=== PATIENT | female | born 1985 | race African-American/Black ===

== ENCOUNTER 2018-12-30 10:04 | Emergency (ER) | payer OTHER ==
[~2018-12-30] VITALS: Ht 149.9 cm; Wt 47.5 kg
[2018-12-30 10:13] VITALS: BP 111/77
[2018-12-30] MEDS ORDERED: diphenhydrAMINE 50 MG/ML VIAL IM ONE (10:45)
[2018-12-30] MEDS ORDERED: HALOPERIDOL LACT 5 MG/ML VIAL. IM ONE (10:45)
[2018-12-30 11:13] LABS: BASO % 0 % (0-3); EOS # 0.1 x10^3/uL (0.0-0.7); EOS % 1 % (0-3); HEMOGLOBIN 12.6 g/dL (12.0-15.5); LYMPH # 2.5 x10^3/uL (1.0-4.8); LYMPH % 27 % (24-48); MEAN CORPUSCULAR HEMOGLOBIN 32 pg (25-35); MEAN CORPUSCULAR HGB CONC 33 g/dL (31-37); MEAN CORPUSCULAR VOLUME 97 fL (79-100); MONO # 0.5 x10^3/uL (0.0-1.1); MONO % 6 % (0-9); NEUT # 6.2 x10^3uL (1.8-7.7); NEUT % 66 % (31-73); PLATELET COUNT 310 x10^3/uL (140-400); RED BLOOD COUNT 3.92 x10^6/uL (3.50-5.40); RED CELL DISTRIBUTION WIDTH 17.4 % (11.5-14.5); WHITE BLOOD COUNT 9.3 x10^3/uL (4.0-11.0)
[2018-12-30 11:19] LABS: PREG TEST PT QUAL NEGATIVE (NEG)
[2018-12-30 11:20] LABS: ETHANOL < 10 mg/dL (0-10); SALIC 5.8 mg/dL (2.8-20.0)
[2018-12-30 11:23] LABS: ALBUMIN 3.4 g/dL (3.4-5.0); ALBUMIN/GLOBULIN RATIO 0.7 (1.0-1.7); CALCIUM 9.2 mg/dL (8.5-10.1); CREATININE 0.6 mg/dL (0.6-1.0); GFR 137.7; TOTAL BILIRUBIN 0.4 mg/dL (0.2-1.0)
[2018-12-30 11:24] LABS: POTASSIUM 2.8 mmol/L (3.5-5.1)
[2018-12-30] MEDS ORDERED: POTASSIUM CHLORIDE 20 MEQ TABLET.ER. PO ONE (11:30)
--- NOTE | 2018-12-30 12:09 | PHYS DOC ---
Past History Past Medical History: Anxiety, Constipation, Depression, Other Past Surgical History: Appendectomy, , Tubal ligation, Other Smoking: Cigarettes Alcohol Use: None Drug Use: Marijuana, Other Social History Narrative: Hx of opiat abuse Adult General Chief Complaint Chief Complaint: HALLUCINATIONS AUDIBLE/VISUAL HPI HPI Patient is a 33-year-old female presents with auditory hallucinations that are arguing with her. She was sent here by her father. Nothing seems to make these better or worse. These have been present for the past 2 weeks. She denies any suicidal or homicidal ideation. Denies any headache.[] Review of Systems Review of Systems Constitutional: Denies fever or chills [] Eyes: Denies change in visual acuity, redness, or eye pain [] HENT: Denies nasal congestion or sore throat [] Respiratory: Denies cough or shortness of breath [] Cardiovascular: No chest pain or palpitations[] GI: Denies abdominal pain, nausea, vomiting, bloody stools or diarrhea [] : Denies dysuria or hematuria [] Musculoskeletal: Denies back pain or joint pain [] Integument: Denies rash or skin lesions [] Neurologic: Denies headache, focal weakness or sensory changes [] Endocrine: Denies polyuria or polydipsia [] All other systems were reviewed and found to be within normal limits, except as documented in this note. Current Medications Current Medications Current Medications Medications (Trade) Dose Ordered Sig/Dmitry Start Time Stop Time Status Last Admin Dose Admin Diphenhydramine HCl (Benadryl) 50 mg 1X ONCE 12/30/18 10:45 12/30/18 10:46 DC Haloperidol Lactate (Haldol) 5 mg 1X ONCE 12/30/18 10:45 12/30/18 10:46 DC 12/30/18 11:01 5 MG Potassium Chloride (Klor-Con) 40 meq 1X ONCE 12/30/18 11:30 12/30/18 11:40 DC 12/30/18 11:43 40 MEQ Allergies Allergies Allergies Coded Allergies Type Severity Reaction Last Updated Verified morphine Allergy Unknown 12/30/18 Yes Physical Exam Physical Exam Constitutional: Well developed, well nourished, no acute distress, non-toxic appearance. [] HENT: Normocephalic, atraumatic, bilateral external ears normal, oropharynx moist, no oral exudates, nose normal. [] Eyes: PERRLA, EOMI, conjunctiva normal, no discharge. [] Neck: Normal range of motion, no tenderness, supple, no stridor. [] Cardiovascular:Heart rate regular rhythm, no murmur [] Lungs & Thorax: Bilateral breath sounds clear to auscultation [] Abdomen: Bowel sounds normal, soft, no tenderness, no masses, no pulsatile masses. [] Skin: Warm, dry, no erythema, no rash. [] Back: No tenderness, no CVA tenderness. [] Extremities: No tenderness, no cyanosis, no clubbing, ROM intact, no edema. [] Neurologic: Alert and oriented X 3, normal motor function, normal sensory function, no focal deficits noted. [] Psychologic: Patient is looking over her right shoulder talking to people that are not present. Arguing with them. [] Current Patient Data Vital Signs Vital Signs Date Time Temp Pulse Resp B/P (MAP) Pulse Ox O2 Delivery O2 Flow Rate FiO2 12/30/18 10:13 98.3 91 22 95 Room Air Lab Results Laboratory Tests Test 12/30/18 10:55 White Blood Count 9.3 x10^3/uL (4.0-11.0) Red Blood Count 3.92 x10^6/uL (3.50-5.40) Hemoglobin 12.6 g/dL (12.0-15.5) Hematocrit 38.0 % (36.0-47.0) Mean Corpuscular Volume 97 fL (79-100) Mean Corpuscular Hemoglobin 32 pg (25-35) Mean Corpuscular Hemoglobin Concent 33 g/dL (31-37) Red Cell Distribution Width 17.4 % (11.5-14.5) H Platelet Count 310 x10^3/uL (140-400) Neutrophils (%) (Auto) 66 % (31-73) Lymphocytes (%) (Auto) 27 % (24-48) Monocytes (%) (Auto) 6 % (0-9) Eosinophils (%) (Auto) 1 % (0-3) Basophils (%) (Auto) 0 % (0-3) Neutrophils # (Auto) 6.2 x10^3uL (1.8-7.7) Lymphocytes # (Auto) 2.5 x10^3/uL (1.0-4.8) Monocytes # (Auto) 0.5 x10^3/uL (0.0-1.1) Eosinophils # (Auto) 0.1 x10^3/uL (0.0-0.7) Basophils # (Auto) 0.0 x10^3/uL (0.0-0.2) Sodium Level 139 mmol/L (136-145) Potassium Level 2.8 mmol/L (3.5-5.1) *L Chloride Level 102 mmol/L (98-107) Carbon Dioxide Level 26 mmol/L (21-32) Anion Gap 11 (6-14) Blood Urea Nitrogen 3 mg/dL (7-20) L Creatinine 0.6 mg/dL (0.6-1.0) Estimated GFR (Cockcroft-Gault) 137.7 BUN/Creatinine Ratio 5 (6-20) L Glucose Level 85 mg/dL (70-99) Calcium Level 9.2 mg/dL (8.5-10.1) Magnesium Level 1.9 mg/dL (1.8-2.4) Total Bilirubin 0.4 mg/dL (0.2-1.0) Aspartate Amino Transferase (AST) 14 U/L (15-37) L Alanine Aminotransferase (ALT) 10 U/L (14-59) L Alkaline Phosphatase 68 U/L (46-116) Total Protein 8.0 g/dL (6.4-8.2) Albumin 3.4 g/dL (3.4-5.0) Albumin/Globulin Ratio 0.7 (1.0-1.7) L Serum Test, Qualitative Negative (NEG) Salicylates Level 5.8 mg/dL (2.8-20.0) Salicylate Last Dose Date Unknown Salicylate Last Dose Time Unknown Acetaminophen Level mcg/mL (10-30) Acetaminophen Last Dose Date Pending Acetaminophen Last Dose Time Pending Ethyl Alcohol Level < 10 mg/dL (0-10) EKG EKG [] Radiology/Procedures Radiology/Procedures [] Course & Med Decision Making Course & Med Decision Making Pertinent Labs and Imaging studies reviewed. (See chart for details) ED course: Patient arrived, was placed in bed, in tolerated exam well. Patient was noted to have a low potassium and attempted to replace this while in the emergency department. While being evaluated by the mental health team she elected to leave the emergency department. She did not sign an AMA form.[] Dragon Disclaimer Dragon Disclaimer This electronic medical record was generated, in whole or in part, using a voice recognition dictation system. Departure Departure: Impression: Primary Impression: Auditory hallucinations Additional Impression: Hypokalemia Referrals: PCP,NO (PCP) Problem Qualifiers LIMA PENN DO Dec 30, 2018 12:09
[2018-12-30 12:50] LABS: ACETAMIN < 10 mcg/mL (10-30)
== END 2018-12-30 11:54 | disposition left against medical advice (07) ==
LOC: ER 10:04
DX: R44.0 Auditory hallucinations (principal); E87.6 Hypokalemia; F41.9 Anxiety disorder, unspecified; F32.9 Major depressive disorder, single episode, unspecified; F17.210 Nicotine dependence, cigarettes, uncomplicated; Z88.5 Allergy status to narcotic agent
CPT/HCPCS: 36415; 80053; 83735; 84443; 84703; 85025; 96372; 99284; G0480; G6039; J1630; 80329; J1200; 82003

== ENCOUNTER 2018-12-30 19:48 | Emergency (ER) | payer OTHER ==
[~2018-12-30] VITALS: Ht 149.9 cm; Wt 47.6 kg
[2018-12-30 20:35] LABS: BASO # 0.1 x10^3/uL (0.0-0.2); BASO % 2 % (0-3); EOS # 0.2 x10^3/uL (0.0-0.7); EOS % 3 % (0-3); HEMATOCRIT 35.2 % (36.0-47.0); HEMOGLOBIN 11.7 g/dL (12.0-15.5); LYMPH # 2.9 x10^3/uL (1.0-4.8); LYMPH % 43 % (24-48); MEAN CORPUSCULAR HEMOGLOBIN 32 pg (25-35); MEAN CORPUSCULAR HGB CONC 33 g/dL (31-37); MEAN CORPUSCULAR VOLUME 96 fL (79-100); MONO # 0.5 x10^3/uL (0.0-1.1); MONO % 7 % (0-9); NEUT % 45 % (31-73); PLATELET COUNT 299 x10^3/uL (140-400); RED BLOOD COUNT 3.66 x10^6/uL (3.50-5.40); RED CELL DISTRIBUTION WIDTH 17.6 % (11.5-14.5); WHITE BLOOD COUNT 6.7 x10^3/uL (4.0-11.0)
[2018-12-30 20:48] LABS: ALBUMIN 2.9 g/dL (3.4-5.0); ALBUMIN/GLOBULIN RATIO 0.8 (1.0-1.7); CALCIUM 8.6 mg/dL (8.5-10.1); CREATININE 0.6 mg/dL (0.6-1.0); GFR 137.7; POTASSIUM 3.4 mmol/L (3.5-5.1); TOTAL BILIRUBIN 0.3 mg/dL (0.2-1.0); TOTAL PROTEIN 6.4 g/dL (6.4-8.2)
[2018-12-30 20:54] LABS: ACETAMIN < 2 mcg/mL (10-30); SALIC 5.4 mg/dL (2.8-20.0)
[2018-12-30] MEDS ORDERED: IV RINGERS SOLUTION,LACTATED 1,000 ML IV ONE (21:00)
[2018-12-30] MEDS ORDERED: POTASSIUM CHLORIDE 20 MEQ TABLET.ER. PO ONE (21:15)
--- NOTE | 2018-12-30 21:19 | PHYS DOC ---
Past History Past Medical History: Anxiety, Constipation, Depression (JENSEN HOWARD DO) Past Surgical History: Appendectomy, , Tubal ligation (JENSEN HOWARD DO) Smoking: Cigarettes Alcohol Use: None Drug Use: Marijuana, Other (JENSEN HOWARD DO) Adult General Chief Complaint Chief Complaint: HYPOKALEMIA HPI HPI 33 y/o female presents with her boyfriend with report of recent evaluation in the Emergency Department earlier today. Patient was seen due to history of auditory and visual hallucinations. Boyfriend reports this has been escalating over the last several weeks. Patient has paranoid delusions that her "neighbors "are out to get her. Reports they are hanging around her house. Patient reports they had to leave a hotel recently due to patient hearing voices and check into another hotel. Patient was evaluated by [facility] earlier today and it was recommended that patient would need inpatient psychiatric services due to risk to herself and to others. Patient was found to have a low potassium and was to be medically admitted. Patient decided she did not want to be admitted to the hospital and was subsequently released AGAINST MEDICAL ADVICE. Patient presents back to department after boyfriend was able to convince patient she would need help. Patient currently denies any suicidal or homicidal ideation. (JENSEN HOWARD DO) Review of Systems Review of Systems Constitutional: Denies fever or chills [] Eyes: Denies change in visual acuity, redness, or eye pain [] HENT: Denies nasal congestion or sore throat [] Respiratory: Denies cough or shortness of breath [] Cardiovascular: Denies chest pain or palpitations GI: Denies abdominal pain, nausea, vomiting, or diarrhea [] : Denies dysuria or hematuria [] Musculoskeletal: Denies back pain or joint pain [] Integument: Denies rash or skin lesions [] Neurologic: Denies headache, focal weakness or sensory changes [] Psychiatric: Reports auditory and visual hallucinations, paranoid delusions; denies homicidal or suicidal ideation[] Complete systems were reviewed and found to be within normal limits, except as documented in this note. (JENSEN HOWARD DO) Current Medications Current Medications Current Medications Medications (Trade) Dose Ordered Sig/Dmitry Start Time Stop Time Status Last Admin Dose Admin Lactated Ringer's 1,000 ml @ 1,000 mls/hr 1X ONCE 12/30/18 21:00 3/7/19 21:59 12/30/18 20:30 1,000 MLS/HR Potassium Chloride (Klor-Con) 40 meq 1X ONCE 12/30/18 21:15 12/30/18 21:16 DC (JENSEN HOWARD DO) Allergies Allergies Allergies Coded Allergies Type Severity Reaction Last Updated Verified morphine Allergy Unknown 12/30/18 Yes (JENSEN HOWARD DO) Physical Exam Physical Exam Constitutional: Well developed, well nourished, no acute distress, non-toxic appearance, sleepy HENT: Normocephalic, atraumatic, oropharynx moist Eyes: PERRL, EOMI, conjunctiva normal, no discharge. [] Neck: Normal range of motion, no tenderness, supple, no meningeal signs Cardiovascular: Heart rate regular rhythm, no murmur [] Lungs & Thorax: Bilateral breath sounds clear to auscultation [] Abdomen: Soft, no tenderness Skin: Warm, dry, no erythema, no rash. [] Extremities: No tenderness, ROM intact, no edema. [] Neurologic: Alert and oriented X 3, normal motor function, normal sensory function, no focal deficits noted. [] Psychologic: Affect flat, denies homicidal or suicidal ideation (JENSEN HOWARD DO) Current Patient Data Vital Signs Vital Signs Date Time Temp Pulse Resp B/P (MAP) Pulse Ox O2 Delivery O2 Flow Rate FiO2 12/30/18 20:54 74 16 92/58 (69) 100 Room Air 12/30/18 19:55 97.8 Lab Results Laboratory Tests Test 12/30/18 20:05 White Blood Count 6.7 x10^3/uL (4.0-11.0) Red Blood Count 3.66 x10^6/uL (3.50-5.40) Hemoglobin 11.7 g/dL (12.0-15.5) L Hematocrit 35.2 % (36.0-47.0) L Mean Corpuscular Volume 96 fL (79-100) Mean Corpuscular Hemoglobin 32 pg (25-35) Mean Corpuscular Hemoglobin Concent 33 g/dL (31-37) Red Cell Distribution Width 17.6 % (11.5-14.5) H Platelet Count 299 x10^3/uL (140-400) Neutrophils (%) (Auto) 45 % (31-73) Lymphocytes (%) (Auto) 43 % (24-48) Monocytes (%) (Auto) 7 % (0-9) Eosinophils (%) (Auto) 3 % (0-3) Basophils (%) (Auto) 2 % (0-3) Neutrophils # (Auto) 3.0 x10^3uL (1.8-7.7) Lymphocytes # (Auto) 2.9 x10^3/uL (1.0-4.8) Monocytes # (Auto) 0.5 x10^3/uL (0.0-1.1) Eosinophils # (Auto) 0.2 x10^3/uL (0.0-0.7) Basophils # (Auto) 0.1 x10^3/uL (0.0-0.2) Sodium Level 142 mmol/L (136-145) Potassium Level 3.4 mmol/L (3.5-5.1) L Chloride Level 106 mmol/L (98-107) Carbon Dioxide Level 25 mmol/L (21-32) Anion Gap 11 (6-14) Blood Urea Nitrogen 5 mg/dL (7-20) #L Creatinine 0.6 mg/dL (0.6-1.0) Estimated GFR (Cockcroft-Gault) 137.7 BUN/Creatinine Ratio 8 (6-20) Glucose Level 131 mg/dL (70-99) H Calcium Level 8.6 mg/dL (8.5-10.1) Magnesium Level 2.0 mg/dL (1.8-2.4) Total Bilirubin 0.3 mg/dL (0.2-1.0) Aspartate Amino Transferase (AST) 14 U/L (15-37) L Alanine Aminotransferase (ALT) 11 U/L (14-59) L Alkaline Phosphatase 61 U/L (46-116) Total Protein 6.4 g/dL (6.4-8.2) Albumin 2.9 g/dL (3.4-5.0) L Albumin/Globulin Ratio 0.8 (1.0-1.7) L Salicylates Level 5.4 mg/dL (2.8-20.0) Salicylate Last Dose Date Unknown Salicylate Last Dose Time Unknown Acetaminophen Level < 2 mcg/mL (10-30) L Acetaminophen Last Dose Date Unknown Acetaminophen Last Dose Time Unknown (HOWARD,JNESEN R DO) EKG EKG [] (JENSEN HOWARD DO) Radiology/Procedures Radiology/Procedures [] (JENSEN HOWARD DO) Course & Med Decision Making Course & Med Decision Making Pertinent Lab studies reviewed. (See chart for details) Patient presents for re-evaluation for auditory and visual hallucinations and paranoid delusions regarding people out to harm her. Patient was previously seen in ED today for same and ended up leaving against medical advise when it was recommended that patient be admitted for hypokalemia. Patient had also been evaluated by [facility] who recommended Involuntary inpatient psychiatric admission. Patient's labs redrawn. Prior serum test negative from earlier today. Patient's potassium improved but still slightly decreased. Patient provided with 40meq KCL and given 1L LR. Contacted [facility]. Pending inpatient bed availability. Patient monitored in ED. Awaiting acceptance for transfer for inpatient psychiatric services. 0600- Sign out given to Dr. Alba for further evaluation and final disposition. Discussed current plan with patient and boyfriend, who acknowledge understanding and agreement. (JENSEN HOWARD DO) Course & Med Decision Making In ER@0940: Patient care transferred to ca by Dr. Howard at 0600. Patient was sleeping for couple of hours. Patient was awake at 8 AM and finished her breakfast. Patient shouldn't is alert and oriented and denies suicidal or homicidal ideation and hallucination. Patient was evaluated by [facility] staff who evaluated the patient yesterday also. Because patient is not hallucinating at this time and is alert and oriented and denies suicidal and homicidal ideation plan to discharge patient home with her boyfriend who was with her at all the time during her ER stay. Patient has appointment with [facility] at 11 AM for medical review. Urine was obtained before discharging patient home and I will follow up with the results of UDS. (SAARY ALBA MD) Dragon Disclaimer Dragon Disclaimer This electronic medical record was generated, in whole or in part, using a voice recognition dictation system. (JENSEN HOWARD DO) Departure Departure: Impression: Primary Impression: Paranoid delusion Additional Impressions: Auditory hallucinations Visual hallucinations Tobacco abuse Tobacco abuse counseling Disposition: HOME, SELF-CARE (at 0943) Condition: IMPROVED Referrals: PCP,NO (PCP) Patient Instructions: Hallucinations and Delusions, Smoking Cessation, Tips For Success, Suicidal Feelings, How to Help Yourself Additional Instructions: Follow-up with [facility] appointment at 11 AM today Follow-up with your primary care physician in 3-5 days Return to ER if not getting better Problem Qualifiers JENSEN HOWARD DO Dec 30, 2018 21:19 SARAY ALBA MD Dec 31, 2018 09:45
[2018-12-31 09:57] LABS: U PREG PATIENT NEGATIVE (NEG)
[2018-12-31 09:59] LABS: AMPHETAMINE/METHAMPHETAMINE NEG (NEG); BARBITURATES NEG (NEG); BENZODIAZEPINES POS (NEG); CANNABINOIDS POS (NEG); COCAINE NEG (NEG); METHADONE NEG (NEG); OPIATES NEG (NEG); PHENCYCLIDINE NEG (NEG)
[2018-12-31 10:00] VITALS: BP 119/82
== END 2018-12-31 09:57 | disposition home or self-care (01) ==
LOC: ER 19:48
DX: F20.0 Paranoid schizophrenia (principal); R44.0 Auditory hallucinations; R44.1 Visual hallucinations; E87.6 Hypokalemia; F41.9 Anxiety disorder, unspecified; F32.9 Major depressive disorder, single episode, unspecified; F17.210 Nicotine dependence, cigarettes, uncomplicated; Z71.6 Tobacco abuse counseling; Z88.5 Allergy status to narcotic agent
CPT/HCPCS: 36415; 80053; 80307; 81025; 83735; 84132; 85025; 86705; 86709; 86803; 87340; 99284; G0480; G6039; J7120; 80329; 99283; 82003

== ENCOUNTER 2019-01-13 21:06 | Emergency (ER) | payer OTHER ==
[~2019-01-13] VITALS: Ht 149.9 cm; Wt 49.9 kg
[2019-01-13 21:44] LABS: HEMATOCRIT 33.5 % (36.0-47.0); HEMOGLOBIN 11.6 g/dL (12.0-15.5); RED BLOOD COUNT 3.53 x10^6/uL (3.50-5.40); RED CELL DISTRIBUTION WIDTH 16.5 % (11.5-14.5); WHITE BLOOD COUNT 8.1 x10^3/uL (4.0-11.0)
[2019-01-13] MEDS ORDERED: diphenhydrAMINE 50 MG/ML VIAL IVP ONE (21:45)
[2019-01-13] MEDS ORDERED: HALOPERIDOL LACT 5 MG/ML VIAL. IVP ONE (21:45)
[2019-01-13] MEDS ORDERED: IV NORMAL SALINE 1,000ML 1,000 ML IV ONE (21:45)
--- NOTE | 2019-01-13 21:46 | ED.ADGEN ---
Past History Past Medical History: Anxiety, Constipation, Depression Past Surgical History: Appendectomy, , Tubal ligation Smoking: Cigarettes Alcohol Use: None Drug Use: Marijuana, Other Adult General Chief Complaint Chief Complaint My potassium is low HPI HPI 33 years old female with the history of schizophrenia presented to the emergency department stating she is here voices also she feels her potassium is low she's talking nonstop and emergency department to an individual in the room with her who does not exist she's also seen people around her no fever no chills no abdominal pain no diarrhea and urgency no frequency no hematuria Review of Systems Review of Systems Constitutional: Denies fever or chills [] Eyes: Denies change in visual acuity, redness, or eye pain [] HENT: Denies nasal congestion or sore throat [] Respiratory: Denies cough or shortness of breath [] Cardiovascular: No additional information not addressed in HPI [] GI: Denies abdominal pain, nausea, vomiting, bloody stools or diarrhea [] : Denies dysuria or hematuria [] Musculoskeletal: Denies back pain or joint pain [] Integument: Denies rash or skin lesions [] Current Medications Current Medications Current Medications Medications (Trade) Dose Ordered Sig/Dmitry Start Time Stop Time Status Last Admin Dose Admin Diphenhydramine HCl (Benadryl) 12.5 mg 1X ONCE 01/13/19 21:45 01/13/19 21:46 DC 01/13/19 21:45 12.5 MG Haloperidol Lactate (Haldol) 2 mg 1X ONCE 01/13/19 21:45 01/13/19 21:46 DC 01/13/19 21:46 2 MG Potassium Chloride/Dextrose/ Sod Cl 1,000 ml @ 150 mls/hr 1X ONCE 01/13/19 23:00 01/14/19 05:39 01/13/19 23:09 150 MLS/HR Potassium Chloride (Klor-Con) 80 meq 1X ONCE 01/13/19 22:30 01/13/19 22:31 DC 01/13/19 22:51 80 MEQ Sodium Chloride 1,000 ml @ 1,000 mls/hr 1X ONCE 01/13/19 21:45 01/13/19 22:44 DC 01/13/19 21:44 1,000 MLS/HR Allergies Allergies Allergies Coded Allergies Type Severity Reaction Last Updated Verified morphine Allergy Unknown 12/30/18 Yes Physical Exam Physical Exam Constitutional: Well developed, well nourished, no acute distress, non-toxic appearance. [] HENT: Normocephalic, atraumatic, bilateral external ears normal, oropharynx moist, no oral exudates, nose normal. [] Eyes: PERRLA, EOMI, conjunctiva normal, no discharge. [] Neck: Normal range of motion, no tenderness, supple, no stridor. [] Cardiovascular:Heart rate regular rhythm, no murmur [] Lungs & Thorax: Bilateral breath sounds clear to auscultation [] Abdomen: Bowel sounds normal, soft, no tenderness, no masses, no pulsatile masses. [] Skin: Warm, dry, no erythema, no rash. [] Back: No tenderness, no CVA tenderness. [] Extremities: No tenderness, no cyanosis, no clubbing, ROM intact, no edema. [] Current Patient Data Lab Results Laboratory Tests Test 01/13/19 21:35 01/13/19 21:55 White Blood Count 8.1 x10^3/uL (4.0-11.0) Red Blood Count 3.53 x10^6/uL (3.50-5.40) Hemoglobin 11.6 g/dL (12.0-15.5) L Hematocrit 33.5 % (36.0-47.0) L Mean Corpuscular Volume 95 fL (79-100) Mean Corpuscular Hemoglobin 33 pg (25-35) Mean Corpuscular Hemoglobin Concent 35 g/dL (31-37) Red Cell Distribution Width 16.5 % (11.5-14.5) H Platelet Count 277 x10^3/uL (140-400) Ethyl Alcohol Level < 10 mg/dL (0-10) Sodium Level 136 mmol/L (136-145) Potassium Level 2.4 mmol/L (3.5-5.1) *L Chloride Level 98 mmol/L (98-107) Carbon Dioxide Level 25 mmol/L (21-32) Anion Gap 13 (6-14) Blood Urea Nitrogen 11 mg/dL (7-20) Creatinine 0.6 mg/dL (0.6-1.0) Estimated GFR (Cockcroft-Gault) 137.7 Glucose Level 84 mg/dL (70-99) Calcium Level 8.7 mg/dL (8.5-10.1) EKG EKG [] Radiology/Procedures Radiology/Procedures [] Course & Med Decision Making Course & Med Decision Making Pertinent Labs and Imaging studies reviewed. (See chart for details) [] Final Impression Final Impression [] Problems: (1) Schizophrenia Qualifiers: Qualified Codes: F20.9 - Schizophrenia, unspecified (2) Hypokalemia Dragon Disclaimer Dragon Disclaimer This electronic medical record was generated, in whole or in part, using a voice recognition dictation system. ARLETH PANG MD Jan 13, 2019 21:46
[2019-01-13 22:18] LABS: CALCIUM 8.7 mg/dL (8.5-10.1); CREATININE 0.6 mg/dL (0.6-1.0); GFR 137.7
[2019-01-13 22:21] LABS: POTASSIUM 2.4 mmol/L (3.5-5.1)
[2019-01-13] MEDS ORDERED: POTASSIUM CHLORIDE 20 MEQ TABLET.ER. PO ONE (22:30)
[2019-01-13] MEDS ORDERED: POTASSIUM CHLORIDE 20MEQ 100 ML IV ONE (22:30)
[2019-01-13] MEDS ORDERED: POTASSIUM CL 40MEQ D5-0.45NACL 1,000 ML IV ONE (23:00)
[2019-01-14 00:46] LABS: CLARITY,URINE CLEAR; COLOR,URINE YELLOW
[2019-01-14 00:47] LABS: BACTERIA,URINE 0 /HPF (0-FEW); BILIRUBIN,URINE NEG (NEG); GLUCOSE,URINE NEG (NEG); NITRITE,URINE NEG (NEG); RBC,URINE OCC /HPF (0-2); SQUAMOUS EPITHELIAL CELL,UR FEW /LPF; UROBILINOGEN,URINE 0.2 mg/dL (0.2 mg/dL)
[2019-01-14 00:52] LABS: BARBITURATES NEG (NEG); BENZODIAZEPINES POS (NEG); CANNABINOIDS POS (NEG); COCAINE NEG (NEG); METHADONE NEG (NEG); OPIATES NEG (NEG); PHENCYCLIDINE NEG (NEG)
[2019-01-14 00:53] LABS: AMPHETAMINE/METHAMPHETAMINE POS (NEG)
[2019-01-14 05:22] LABS: CALCIUM 8.3 mg/dL (8.5-10.1); CREATININE 0.6 mg/dL (0.6-1.0); GFR 137.7; POTASSIUM 4.4 mmol/L (3.5-5.1)
[2019-01-14 08:59] VITALS: BP 110/65
[2019-01-14] MEDS ORDERED: POTA20TA4 PO (09:36)
[2019-01-14] MEDS ORDERED: POLY119P4 PO (20:30)
[2019-01-14] MEDS ORDERED: SULF1TAB24 PO (20:30)
== END 2019-01-14 09:41 | disposition home or self-care (01) ==
LOC: ER 21:06
DX: F20.9 Schizophrenia, unspecified (principal); E87.6 Hypokalemia; F41.9 Anxiety disorder, unspecified; F32.9 Major depressive disorder, single episode, unspecified; F17.210 Nicotine dependence, cigarettes, uncomplicated; Z88.5 Allergy status to narcotic agent
CPT/HCPCS: 36415; 80048; 80307; 81001; 85027; 87086; 96365; 96366; 96375; 99284; G0480; J1200; J1630; J3480; J7042; J7030

== ENCOUNTER 2019-01-14 17:24 | Emergency (ER) | payer OTHER ==
[~2019-01-14] VITALS: Ht 149.9 cm; Wt 47.5 kg
[~2019-01-14 17:24] MED LIST: POTA20TA4 PO
[2019-01-14] MEDS ORDERED: MVI, ADULT NO.4 WITH VIT K 10 ML, FOLIC ACID SYRINGE for ER 1 MG, THIAMINE INJ 100 MG i... IV ONE ×4 (18:00)
--- NOTE | 2019-01-14 18:05 | PHYS DOC ---
Past History Past Medical History: Anxiety, Constipation, Depression, Schizophrenia, Other Additional Past Medical Histor: Drug use (ROSARIO ROTHMAN DO) Past Surgical History: Appendectomy, , Tubal ligation (ROSARIO ROTHMAN DO) Smoking: Cigarettes Alcohol Use: Occasionally Drug Use: Benzodiazepine, Marijuana, Methamphetamine, Opiates (ROSARIO ROTHMAN DO) Adult General Chief Complaint Chief Complaint: WEAKNESS/GENERALIZED HPI HPI 33-year-old female returns to the emergency room with feeling of generalized weakness. The patient was here for 12 hours yesterday and discharge this morning to being treated for hypokalemia. She now states that she was feeling increased weakness and global muscle weakness. She says something about supposed to be getting a full body CAT scan. She denies fever or chills. (ROSARIO ROTHMAN DO) Review of Systems Review of Systems Constitutional: Denies fever or chills. General weakness[] Eyes: Denies change in visual acuity, redness, or eye pain [] HENT: Denies nasal congestion or sore throat [] Respiratory: Denies cough or shortness of breath [] Cardiovascular: No additional information not addressed in HPI [] GI: Denies abdominal pain, nausea, vomiting, bloody stools or diarrhea [] : Denies dysuria or hematuria [] Musculoskeletal: Denies back pain or joint pain [] Integument: Denies rash or skin lesions [] Neurologic: Denies headache, focal weakness or sensory changes [] Endocrine: Denies polyuria or polydipsia [] All other systems were reviewed and found to be within normal limits, except as documented in this note. (ROSARIO ROTHMAN DO) Current Medications Current Medications Current Medications Medications (Trade) Dose Ordered Sig/Dmitry Start Time Stop Time Status Last Admin Dose Admin Multivitamins/ Minerals 10 ml/ Folic Acid 1 mg/ Thiamine HCl 100 mg/Sodium Chloride 1,011.1 ml @ 1,000 mls/ hr 1X ONCE 01/14/19 18:00 01/14/19 19:00 (ROSARIO ROTHMAN DO) Allergies Allergies Allergies Coded Allergies Type Severity Reaction Last Updated Verified morphine Allergy Unknown 12/30/18 Yes (ROSARIO ROTHMAN DO) Physical Exam Physical Exam Constitutional: Well developed, thin, well nourished, no acute distress, non- toxic appearance. [] HENT: Normocephalic, atraumatic, bilateral external ears normal, oropharynx moist, no oral exudates, nose normal. [] Eyes: PERRLA, EOMI, conjunctiva normal, no discharge. [] Neck: Normal range of motion, no tenderness, supple, no stridor. [] Cardiovascular: Heart rate regular rhythm, no murmur [] Lungs & Thorax: Bilateral breath sounds clear to auscultation [] Abdomen: Bowel sounds normal, soft, no tenderness, no masses, no pulsatile masses. [] Skin: Warm, dry, no erythema, no rash. [] Back: No tenderness, no CVA tenderness. [] Extremities: No tenderness, no cyanosis, no clubbing, ROM intact, no edema. [] Neurologic: Alert and oriented X 3, normal motor function, normal sensory function, no focal deficits noted. [] Psychologic: Affect normal, judgement normal, mood normal. [] (ROSARIO ROTHMAN DO) EKG EKG [] (ROSARIO ROTHMAN DO) Radiology/Procedures Radiology/Procedures [] (ROSARIO ROTHMAN DO) Course & Med Decision Making Course & Med Decision Making Pertinent Labs and Imaging studies reviewed. (See chart for details) The patient's labs are pending. I'm signing out the patient to Dr. Cohen at 1800. [] (ROSARIO ROTHMAN DO) Course & Med Decision Making dx ; weakness uti (ARLETH PANG MD) Dragon Disclaimer Dragon Disclaimer This electronic medical record was generated, in whole or in part, using a voice recognition dictation system. (ROSARIO ROTHMAN DO) Departure Departure: Referrals: PCP,NO (PCP) ROSARIO ROTHMAN DO Jan 14, 2019 18:05 ARLETH PANG MD Jan 14, 2019 20:29
[2019-01-14] MEDS ORDERED: THIAMINE IM 200 MG/2 ML VIAL. IM ONE (18:06)
[2019-01-14] MEDS ORDERED: FOLIC ACID 5 MG/ML SYRINGE for ER IV ONE (18:06)
[2019-01-14 18:19] LABS: BASO # 0.1 x10^3/uL (0.0-0.2); BASO % 1 % (0-3); EOS # 0.2 x10^3/uL (0.0-0.7); EOS % 3 % (0-3); HEMATOCRIT 31.1 % (36.0-47.0); HEMOGLOBIN 10.4 g/dL (12.0-15.5); LYMPH # 3.4 x10^3/uL (1.0-4.8); LYMPH % 37 % (24-48); MEAN CORPUSCULAR HEMOGLOBIN 32 pg (25-35); MEAN CORPUSCULAR HGB CONC 33 g/dL (31-37); MEAN CORPUSCULAR VOLUME 96 fL (79-100); MONO # 0.6 x10^3/uL (0.0-1.1); MONO % 7 % (0-9); NEUT # 4.7 x10^3uL (1.8-7.7); NEUT % 53 % (31-73); PLATELET COUNT 248 x10^3/uL (140-400); RED BLOOD COUNT 3.23 x10^6/uL (3.50-5.40); RED CELL DISTRIBUTION WIDTH 16.9 % (11.5-14.5)
[2019-01-14 18:34] LABS: ALBUMIN 2.7 g/dL (3.4-5.0); ALBUMIN/GLOBULIN RATIO 0.8 (1.0-1.7); CALCIUM 8.5 mg/dL (8.5-10.1); CREATININE 0.5 mg/dL (0.6-1.0); GFR 169.9; TOTAL BILIRUBIN 0.3 mg/dL (0.2-1.0); TOTAL PROTEIN 6.2 g/dL (6.4-8.2)
[2019-01-14 19:42] LABS: BACTERIA,URINE FEW /HPF (0-FEW); BILIRUBIN,URINE NEG (NEG); CLARITY,URINE HAZY; COLOR,URINE STRAW; GLUCOSE,URINE NEG (NEG); NITRITE,URINE NEG (NEG); RBC,URINE RARE /HPF (0-2); SQUAMOUS EPITHELIAL CELL,UR OCC /LPF; UROBILINOGEN,URINE 0.2 mg/dL (0.2 mg/dL)
--- NOTE | 2019-01-14 19:49 | RAD ---
KUB History: Abdominal pain x 2 days Comparison: May 09, 2010 Findings: 2 supine AP views of the abdomen are submitted. There is a nonobstructive bowel gas pattern. There is again clip in the pelvis now in the right paracentral region, previously on the left. Exam is insufficient for the evaluation for free air. There is retained stool greater in the right colon Impression: 1. There is a nonobstructive bowel gas pattern. Electronically signed by: Tyrell King MD (01/14/2019 7:46 PM) [facility]
[2019-01-14 20:30] VITALS: BP 137/80
[2019-01-14] MEDS ORDERED: SULF1TAB24 PO (20:30)
[2019-01-14] MEDS ORDERED: POLY119P4 PO (20:30)
== END 2019-01-14 20:41 | disposition home or self-care (01) ==
LOC: ER 17:24
DX: R53.1 Weakness (principal); N39.0 Urinary tract infection, site not specified; F41.9 Anxiety disorder, unspecified; F32.9 Major depressive disorder, single episode, unspecified; F20.9 Schizophrenia, unspecified; F17.210 Nicotine dependence, cigarettes, uncomplicated; Z88.5 Allergy status to narcotic agent
CPT/HCPCS: 36415; 74018; 80053; 81001; 85025; 87086; 96365; 99284-25; J7030

== ENCOUNTER 2019-02-03 11:08 | Emergency (ER) | payer OTHER ==
[~2019-02-03] VITALS: Ht 149.9 cm; Wt 44.5 kg
[~2019-02-03 11:08] MED LIST changes: +POLY119P4 PO; +SULF1TAB24 PO
--- NOTE | 2019-02-03 11:52 | RAD ---
AP view of the abdomen Clinical indications: Sensation of foreign body in rectum. FINDINGS: There is a 16 mm metallic rectangular foreign body within the mid pelvis. This was seen on previous studies dated January 14, 2019 and May 09, 2010. Therefore, this is consistent with a surgical clip. Anastomotic line of the right side of the pelvis is seen. There is mild fecal retention throughout the colon. No obstructive bowel pattern is seen. IMPRESSION: No new radiopaque foreign body is evident. Electronically signed by: Apollo Lucio MD (02/03/2019 11:49 AM) [id number]
--- NOTE | 2019-02-03 11:58 | PHYS DOC ---
Past History Past Medical History: Anxiety, Constipation, Depression, Schizophrenia, Other Additional Past Medical Histor: Drug use Past Surgical History: Appendectomy, , Tubal ligation Smoking: Cigarettes Alcohol Use: Occasionally Drug Use: Benzodiazepine, Marijuana, Methamphetamine, Opiates Adult General Chief Complaint Chief Complaint: RECTAL FOREIGN BODY HPI HPI Patient is a 33-year-old female who presents with feeling like there is a rectal foreign body for the past 2 days. This happened after the patient to been at a democrat and then woke up at her house. She was evaluated at and had an ultrasound performed. She reports that they only did this a vaginally and that no rectal examination had taken place. Patient denies being able to have a bowel movement. Denies any current nausea or vomiting. She did have some nausea yesterday. Nothing seems to make the symptoms better or worse. No home treatment such as enema or manual retrieval has been attempted. There has been no rectal bleeding.[] Review of Systems Review of Systems Constitutional: Denies fever or chills [] Eyes: Denies change in visual acuity, redness, or eye pain [] HENT: Denies nasal congestion or sore throat [] Respiratory: Denies cough or shortness of breath [] Cardiovascular: No chest pain or palpitations[] GI: See history of present illness[] : Denies dysuria or hematuria [] Musculoskeletal: Denies back pain or joint pain [] Integument: Denies rash or skin lesions [] Neurologic: Denies headache, focal weakness or sensory changes [] Endocrine: Denies polyuria or polydipsia [] All other systems were reviewed and found to be within normal limits, except as documented in this note. Allergies Allergies Allergies Coded Allergies Type Severity Reaction Last Updated Verified morphine Allergy Unknown 12/30/18 Yes Physical Exam Physical Exam Constitutional: Well developed, well nourished, no acute distress, non-toxic appearance. [] HENT: Normocephalic, atraumatic, bilateral external ears normal, oropharynx moist, no oral exudates, nose normal. [] Eyes: PERRLA, EOMI, conjunctiva normal, no discharge. [] Neck: Normal range of motion, no tenderness, supple, no stridor. [] Cardiovascular:Heart rate regular rhythm, no murmur [] Lungs & Thorax: Bilateral breath sounds clear to auscultation [] Abdomen: Bowel sounds normal, soft, no tenderness, no masses, no pulsatile masses. Rectal exam performed with auto body builder apprentice: No external hemorrhoids noted. Proctoscoped placed without any complications. No internal hemorrhoids appreciated, no bleeding, no foreign body appreciated to the extent of the proctoscope.[] Skin: Warm, dry, no erythema, no rash. [] Back: No tenderness, no CVA tenderness. [] Extremities: No tenderness, no cyanosis, no clubbing, ROM intact, no edema. [] Neurologic: Alert and oriented X 3, normal motor function, normal sensory function, no focal deficits noted. [] Psychologic: Affect normal, judgement normal, mood normal. [] Current Patient Data Vital Signs Vital Signs Date Time Temp Pulse Resp B/P (MAP) Pulse Ox O2 Delivery O2 Flow Rate FiO2 02/03/19 11:27 98.1 76 18 100 Room Air EKG EKG [] Radiology/Procedures Radiology/Procedures AP view of the abdomen Clinical indications: Sensation of foreign body in rectum. FINDINGS: There is a 16 mm metallic rectangular foreign body within the mid pelvis. This was seen on previous studies dated January 14, 2019 and May 09, 2010. Therefore, this is consistent with a surgical clip. Anastomotic line of the right side of the pelvis is seen. There is mild fecal retention throughout the colon. No obstructive bowel pattern is seen. IMPRESSION: No new radiopaque foreign body is evident.[] Course & Med Decision Making Course & Med Decision Making Pertinent Labs and Imaging studies reviewed. (See chart for details) Medical decision making: Patient denies there being a chance that she was raped. She reports that this is the first day of her menstrual period. There is no evidence of a rectal foreign body. No evidence of any rectal fissures or tears. No gross bleeding. No evidence of patient being .[] Dragon Disclaimer Dragon Disclaimer This electronic medical record was generated, in whole or in part, using a voice recognition dictation system. Departure Departure: Impression: Primary Impression: Sensation of foreign body Disposition: HOME, SELF-CARE Condition: IMPROVED Referrals: PCP,NO (PCP) Patient Instructions: Constipation, Adult Additional Instructions: Plan plenty of fluids. Increase the fiber in your diet. Follow-up with your regular doctor in 2 days. If you do not have regular doctor list of local clinics will be provided. Return to the ER if worsening pain or any other concerns. LIMA PENN DO Feb 03, 2019 11:58
[2019-02-03 12:29] VITALS: BP 124/70
[2019-02-03 12:29] LABS: PREG TEST PT QUAL NEGATIVE (NEG)
== END 2019-02-03 12:30 | disposition home or self-care (01) ==
LOC: ER 11:08
DX: R19.8 Other specified symptoms and signs involving the digestive system and abdomen (principal); F41.9 Anxiety disorder, unspecified; F32.9 Major depressive disorder, single episode, unspecified; F20.9 Schizophrenia, unspecified; F17.210 Nicotine dependence, cigarettes, uncomplicated; Z88.5 Allergy status to narcotic agent
CPT/HCPCS: 36415; 74018; 84703; 99284

== ENCOUNTER 2019-02-06 22:38 | Emergency (ER) | payer OTHER ==
[~2019-02-06] VITALS: Ht 149.9 cm; Wt 44.9 kg
[2019-02-06 22:51] VITALS: BP 99/50
[2019-02-06] MEDS ORDERED: POLY119P4 PO (23:07)
--- NOTE | 2019-02-06 23:07 | PHYS DOC ---
Past History Past Medical History: Anxiety, Constipation, Depression, Schizophrenia, Other Additional Past Medical Histor: Drug use Past Surgical History: Appendectomy, , Tubal ligation Smoking: Cigarettes Alcohol Use: Occasionally Drug Use: Benzodiazepine, Marijuana, Methamphetamine, Opiates Adult General Chief Complaint Chief Complaint: ABDOMINAL PAIN HPI HPI Patient is a 33-year-old female presents with constipation. She reports that her last bowel movement was 5 days ago. No nausea or vomiting. She is passing flatus. Diffuse aching and cramping in the abdomen. No blood from the rectum. Nothing seems to make the symptoms better or worse. Discomfort is moderate.[] Review of Systems Review of Systems Constitutional: Denies fever or chills [] Eyes: Denies change in visual acuity, redness, or eye pain [] HENT: Denies nasal congestion or sore throat [] Respiratory: Denies cough or shortness of breath [] Cardiovascular: No chest pain or palpitations[] GI: See history of present illness[] : Denies dysuria or hematuria [] Musculoskeletal: Denies back pain or joint pain [] Integument: Denies rash or skin lesions [] Neurologic: Denies headache, focal weakness or sensory changes [] Endocrine: Denies polyuria or polydipsia [] All other systems were reviewed and found to be within normal limits, except as documented in this note. Allergies Allergies Allergies Coded Allergies Type Severity Reaction Last Updated Verified morphine Allergy Unknown 12/30/18 Yes Physical Exam Physical Exam Constitutional: Well developed, well nourished, no acute distress, non-toxic appearance. [] HENT: Normocephalic, atraumatic, bilateral external ears normal, oropharynx moist, no oral exudates, nose normal. [] Eyes: PERRLA, EOMI, conjunctiva normal, no discharge. [] Neck: Normal range of motion, no tenderness, supple, no stridor. [] Cardiovascular:Heart rate regular rhythm, no murmur [] Lungs & Thorax: Bilateral breath sounds clear to auscultation [] Abdomen: Bowel sounds normal, soft, no tenderness, no masses, no pulsatile masses. [] Skin: Warm, dry, no erythema, no rash. [] Back: No tenderness, no CVA tenderness. [] Extremities: No tenderness, no cyanosis, no clubbing, ROM intact, no edema. [] Neurologic: Alert and oriented X 3, normal motor function, normal sensory function, no focal deficits noted. [] Psychologic: Affect normal, judgement normal, mood normal. [] EKG EKG [] Radiology/Procedures Radiology/Procedures [] Course & Med Decision Making Course & Med Decision Making Pertinent Labs and Imaging studies reviewed. (See chart for details) ED course and medical decision making: Patient was seen by me in tolerated exam well. She was given a dose of laxative and discharged in improved condition. She was previously seen by me 3 days ago for complaint of rectal foreign body that was not actually present. She was noted to be constipated on imaging at that time. She was instructed to increase the fiber in her diet trying to treat this without medication. There was no stool in the vault when examined with a proctoscope. No significant hemorrhoids were noted on exam of 3 days ago. We will give the magnesium citrate a chance to work as well as prescribed MiraLAX for outpatient use to prevent recurrence of this issue since it appears that MiraLAX had previously been prescribed. There is no evidence of obstruction or perforation given no nausea, and no significant abdominal tenderness nor rigidity.[] Dragon Disclaimer Dragon Disclaimer This electronic medical record was generated, in whole or in part, using a voice recognition dictation system. Departure Departure: Impression: Primary Impression: Constipation Disposition: 01 HOME, SELF-CARE Condition: IMPROVED Referrals: PCPCECILIA (PCP) Patient Instructions: Constipation, Adult Additional Instructions: Drink plenty of fluids. Increase the fiber in your diet. An easy way to do this is to eat cereal with "bran" or "fiber" in the name. Follow-up with your regular doctor in 2 days. If you do not have a regular doctor list of local clinics will be provided for you. Return to the ER if worsening discomfort or any other concerns. Scripts Polyethylene Glycol 3350 (MIRALAX) 119 Gm Powder 17 GM PO DAILY for constipation, #527 GM Prov: LIMA PENN DO 02/06/19 Problem Qualifiers Primary Impression: Constipation Constipation type: unspecified constipation type Qualified Codes: K59.00 - Constipation, unspecified LIMA PENN DO Feb 06, 2019 23:07
[2019-02-06] MEDS ORDERED: MAGNESIUM CITRATE 296 ML SOLUTION. PO ONE (23:30)
== END 2019-02-06 23:12 | disposition home or self-care (01) ==
LOC: ER 22:38
DX: K59.00 Constipation, unspecified (principal); F41.9 Anxiety disorder, unspecified; F32.9 Major depressive disorder, single episode, unspecified; F20.9 Schizophrenia, unspecified; F17.210 Nicotine dependence, cigarettes, uncomplicated; Z90.49 Acquired absence of other specified parts of digestive tract; Z98.890 Other specified postprocedural states; Z98.51 Tubal ligation status; Z88.5 Allergy status to narcotic agent
CPT/HCPCS: 99282

== ENCOUNTER 2019-02-07 19:13 | Emergency (ER) | payer OTHER ==
[~2019-02-07] VITALS: Ht 149.9 cm; Wt 45.8 kg
[2019-02-07 19:13] VITALS: BP 134/76
--- NOTE | 2019-02-07 19:15 | ED.ADGEN ---
Past History Past Medical History: Anxiety, Constipation, Depression, Schizophrenia, Other Additional Past Medical Histor: Drug use Past Surgical History: Appendectomy, , Tubal ligation Smoking: Cigarettes Alcohol Use: Occasionally Drug Use: Benzodiazepine, Marijuana, Methamphetamine, Opiates Adult General Chief Complaint Chief Complaint ( Hx of Constipation and out let rectal bleeding) Did not see physician. Left when sent for urine collection. HPI HPI Patient is a 33 year old female who presents with hx of rectal bleeding. Pt. sent to bathroom for urine. Pt. then left the ED. Seen yesterday for similar complaint. Pt. returned to ED after leaving and smoking in parking lot. Pt. left and return to the ED 3 x before I was able to obtain Hx. and exam. Pt. hx. of constipation, schizophrenia, polysubstance abuse and anxiety . Pt. denies history of rectal instrumentation or sex. Patient denies history of inflammatory bowel disorder before or family members. Patient denies history coagulopathy. Review of Systems Review of Systems ROS- neg. except blood noted on toilet paper after wiping and hard stool. GI:Hx. out let rectal bleeding and constipation Family History Family History No hx of colitis or inflammatory bowel dz. No hx of coagulopathy Current Medications Current Medications See nursing for home meds Allergies Allergies Allergies Coded Allergies Type Severity Reaction Last Updated Verified morphine Allergy Unknown 12/30/18 Yes Physical Exam Physical Exam Left before exam. GEN. Anxious -HEENT- No acute. Poor dentition CV- RRR No murmur Chest- BS equal, scattered wheezes Abd. NT, BS +, No re bound, Rectal no gross blood Ex.t ROM, DT R+ 2 Skin:- No petechia or significant bruising Current Patient Data Vital Signs Vital Signs Date Time Temp Pulse Resp B/P (MAP) Pulse Ox O2 Delivery O2 Flow Rate FiO2 02/07/19 19:13 97.6 73 16 100 Room Air Lab Results Laboratory Tests Test 02/07/19 19:30 Urine Collection Type Unknown Urine Color Straw Urine Clarity Clear Urine pH 6.5 Urine Specific [place] <=1.005 Urine Protein Neg (NEG-TRACE) Urine Glucose (UA) Neg mg/dL (NEG) Urine Ketones (Stick) Neg mg/dL (NEG) Urine Blood Mod (NEG) Urine Nitrite Neg (NEG) Urine Bilirubin Neg (NEG) Urine Urobilinogen Dipstick 0.2 mg/dL (0.2 mg/dL) Urine Leukocyte Esterase Neg (NEG) Urine RBC 1-2 /HPF (0-2) Urine WBC 0 /HPF (0-4) Urine Squamous Epithelial Cells Occ /LPF Urine Bacteria 0 /HPF (0-FEW) Urine Opiates Screen Neg (NEG) Urine Methadone Screen Neg (NEG) Urine Barbiturates Neg (NEG) Urine Phencyclidine Screen Neg (NEG) Urine Amphetamine/Methamphetamine Neg (NEG) Urine Benzodiazepines Screen Neg (NEG) Urine Cocaine Screen Neg (NEG) Urine Cannabinoids Screen Pos (NEG) Urine Ethyl Alcohol Neg (NEG) EKG EKG [] Radiology/Procedures Radiology/Procedures Pt. refuses X- rays.[] Course & Med Decision Making Course & Med Decision Making Pertinent Labs and Imaging studies reviewed. (See chart for details) Left before exam.- x3, Exam finally completed with Nursing staff present. Pt. to keep soft stools. Follow up with primary and GI. Need out pt. colon exam. Encourage pt to stop smoking. [facility]. See Down time charting for details. Pt. refuses Labs. [] Final Impression Final Impression 1. Hx Out Let Bleeding[] 2. Schizophrenia Hx. 3. Hx. Polysubstance Abuse 4. Tobacco and Marijuana Use 5. Hx. Anxiety Disorder Dragon Disclaimer Dragon Disclaimer This electronic medical record was generated, in whole or in part, using a voice recognition dictation system. Discharge Summary Visit Information Final Diagnosis Problems Medical Problems: (1) History of rectal bleeding Status: Acute Brief Hospital Course Allergies Allergies Coded Allergies Type Severity Reaction Last Updated Verified morphine Allergy Unknown 12/30/18 Yes Vital Signs Vital Signs Date Time Temp Pulse Resp B/P (MAP) Pulse Ox O2 Delivery O2 Flow Rate FiO2 02/07/19 19:13 97.6 73 16 100 Room Air Lab Results Laboratory Tests Test 02/07/19 19:30 Urine Collection Type Unknown Urine Color Straw Urine Clarity Clear Urine pH 6.5 Urine Specific [place] <=1.005 Urine Protein Neg (NEG-TRACE) Urine Glucose (UA) Neg mg/dL (NEG) Urine Ketones (Stick) Neg mg/dL (NEG) Urine Blood Mod (NEG) Urine Nitrite Neg (NEG) Urine Bilirubin Neg (NEG) Urine Urobilinogen Dipstick 0.2 mg/dL (0.2 mg/dL) Urine Leukocyte Esterase Neg (NEG) Urine RBC 1-2 /HPF (0-2) Urine WBC 0 /HPF (0-4) Urine Squamous Epithelial Cells Occ /LPF Urine Bacteria 0 /HPF (0-FEW) Urine Opiates Screen Neg (NEG) Urine Methadone Screen Neg (NEG) Urine Barbiturates Neg (NEG) Urine Phencyclidine Screen Neg (NEG) Urine Amphetamine/Methamphetamine Neg (NEG) Urine Benzodiazepines Screen Neg (NEG) Urine Cocaine Screen Neg (NEG) Urine Cannabinoids Screen Pos (NEG) Urine Ethyl Alcohol Neg (NEG) Brief Hospital Course Ms. Wilhelm is a 33 old female who presented with hx blood on toilet paper after hard stool. Hx. Anxiety, Schizophrenia. Discharge Information Condition at Discharge: Improved, Stable Disposition/Orders: D/C to Home Dischare Medications Active Scripts Active Miralax (Polyethylene Glycol 3350) 119 Gm Powder 17 Gm PO DAILY Miralax (Polyethylene Glycol 3350) 119 Gm Powder 17 Gm PO DAILY Bactrim Ds Tablet (Sulfamethoxazole/Trimethoprim) 1 Each Tablet 1 Tab PO BID Klor-Con M20 (Potassium Chloride) 20 Meq Tab.er.prt 1 Tab PO DAILY Dragon Disclaimer This chart was dictated in whole or in part using Voice Recognition software in a busy, high-work load, and often noisy Emergency Department environment. It may contain unintended and wholly unrecognized errors or omissions. RAÚL MIGUEL MD Feb 07, 2019 19:15
[2019-02-07 19:53] LABS: BARBITURATES NEG (NEG); BENZODIAZEPINES NEG (NEG); CANNABINOIDS POS (NEG); COCAINE NEG (NEG); METHADONE NEG (NEG); OPIATES NEG (NEG); PHENCYCLIDINE NEG (NEG)
[2019-02-07 19:54] LABS: BILIRUBIN,URINE NEG (NEG); CLARITY,URINE CLEAR; COLOR,URINE STRAW; GLUCOSE,URINE NEG (NEG)
[2019-02-07 19:55] LABS: AMPHETAMINE/METHAMPHETAMINE NEG (NEG); BACTERIA,URINE 0 /HPF (0-FEW); NITRITE,URINE NEG (NEG); SQUAMOUS EPITHELIAL CELL,UR OCC /LPF; UROBILINOGEN,URINE 0.2 mg/dL (0.2 mg/dL); WBC,URINE 0 /HPF (0-4)
== END 2019-02-07 20:50 | disposition home or self-care (01) ==
LOC: ER 19:13
DX: K62.5 Hemorrhage of anus and rectum (principal); F20.9 Schizophrenia, unspecified; F41.9 Anxiety disorder, unspecified; F32.9 Major depressive disorder, single episode, unspecified; F17.210 Nicotine dependence, cigarettes, uncomplicated; F12.10 Cannabis abuse, uncomplicated; F15.10 Other stimulant abuse, uncomplicated; F11.10 Opioid abuse, uncomplicated; Z88.5 Allergy status to narcotic agent
CPT/HCPCS: 36415; 80307; 81001; 99284

== ENCOUNTER 2019-02-08 15:25 | Emergency (ER) | payer OTHER ==
[2019-02-07 19:13] VITALS: BP 134/76
== END 2019-02-08 15:41 | disposition left against medical advice (07) ==
LOC: ER 15:25
DX: R44.3 Hallucinations, unspecified (principal); Z53.21 Procedure and treatment not carried out due to patient leaving prior to being seen by health care provider

== ENCOUNTER 2019-03-03 23:16 | Emergency (ER) | payer OTHER ==
[~2019-03-03] VITALS: Ht 149.9 cm; Wt 49.9 kg
[2019-03-03 23:30] VITALS: BP 137/96
--- NOTE | 2019-03-03 23:53 | PHYS DOC ---
Past History Past Medical History: Anxiety, Constipation, Depression, Schizophrenia, Other Additional Past Medical Histor: Drug use Past Surgical History: Appendectomy, , Tubal ligation Smoking: Cigarettes Alcohol Use: Occasionally Drug Use: Benzodiazepine, Marijuana, Methamphetamine, Opiates Adult General Chief Complaint Chief Complaint: CHEST PAIN [facility] HPI Patient is a 33-year-old female presents with intermittent chest pain for the past week. She reports that people put a device in her rectum that went to her heart that controls her chest pain. Nothing seems to make the discomfort worse. No worse with exertion. No nausea or vomiting. No diaphoresis. No radiation of the discomfort. No diarrhea. Patient denies any recent trauma, no prolonged trips or stasis, and no known hypercoagulable state.[] Review of Systems Review of Systems Constitutional: Denies fever or chills [] Eyes: Denies change in visual acuity, redness, or eye pain [] HENT: Denies nasal congestion or sore throat [] Respiratory: Denies cough or shortness of breath [] Cardiovascular: No additional information not addressed in HPI [] GI: Denies abdominal pain, nausea, vomiting, bloody stools or diarrhea [] : Denies dysuria or hematuria [] Musculoskeletal: Denies back pain or joint pain [] Integument: Denies rash or skin lesions [] Neurologic: Denies headache, focal weakness or sensory changes [] Endocrine: Denies polyuria or polydipsia [] All other systems were reviewed and found to be within normal limits, except as documented in this note. Allergies Allergies Allergies Coded Allergies Type Severity Reaction Last Updated Verified morphine Allergy Unknown 12/30/18 Yes Physical Exam Physical Exam Constitutional: Well developed, well nourished, no acute distress, non-toxic appearance. [] HENT: Normocephalic, atraumatic, bilateral external ears normal, oropharynx moist, no oral exudates, nose normal. [] Eyes: PERRLA, EOMI, conjunctiva normal, no discharge. [] Neck: Normal range of motion, no tenderness, supple, no stridor. [] Cardiovascular:Heart rate regular rhythm, no murmur [] Lungs & Thorax: Bilateral breath sounds clear to auscultation [] Abdomen: Bowel sounds normal, soft, no tenderness, no masses, no pulsatile masses. [] Skin: Warm, dry, no erythema, no rash. [] Back: No tenderness, no CVA tenderness. [] Extremities: No tenderness, no cyanosis, no clubbing, ROM intact, no edema. [] Neurologic: Alert and oriented X 3, normal motor function, normal sensory function, no focal deficits noted. [] Psychologic: Affect suspicious, mood normal. [] EKG EKG EKG shows a sinus rhythm at 75 bpm, right axis at 113, QTC 456 ms, no ST elevations. Interpreted by me at 2328[] Radiology/Procedures Radiology/Procedures Chest x-ray shows no infiltrate, no effusion, no pneumothorax Pelvis x-ray showed no fracture or dislocation, no radio opaque foreign body that was not present when compared with imaging of 02/03/19, 01/14/19 and 05/09/2010[] Course & Med Decision Making Course & Med Decision Making Pertinent Labs and Imaging studies reviewed. (See chart for details) ED course: Patient arrived, was placed in bed, and tolerated exam well. After the return of laboratory and imaging findings, these were discussed with the patient who voiced understanding. She was discharged in improved condition. Medical decision making: There is no evidence of a rectal foreign body. No evidence of an acute coronary syndrome. Negative PERC. No evidence of pneumonia, pneumothorax, esophageal rupture, nor thoracic aortic aneurysm dissection[] Dragon Disclaimer Dragon Disclaimer This electronic medical record was generated, in whole or in part, using a voice recognition dictation system. Departure Departure: Impression: Primary Impression: Chest pain Disposition: HOME, SELF-CARE Condition: IMPROVED Referrals: PCP,NO (PCP) Patient Instructions: Chest Pain (Nonspecific) Additional Instructions: Follow-up with your regular doctor in 2 days. If you do not have a regular doctor a list of local clinics will be provided for you. Follow-up with one of them in 2 days. Return to the ER if worsening chest discomfort or any other concerns. Scripts Meloxicam (MELOXICAM) 7.5 Mg Tablet 7.5 MG PO DAILY for PAIN, #20 TAB Prov: LIMA PENN DO 03/04/19 Problem Qualifiers Primary Impression: Chest pain Chest pain type: unspecified Qualified Codes: R07.9 - Chest pain, unspecified LIMA PENN DO March 03, 2019 23:53
--- NOTE | 2019-03-04 00:11 | RAD ---
Examination: Single frontal view the pelvis History history of rectal foreign body COMPARISON: 02/03/2019. Findings/ impression: 16mm metallic rectangular metallic density/or metallic clip projects in the pelvis similar to prior exam and is unchanged. The bowel gas pattern appears unremarkable. The bilateral femoral heads of the scapula. Electronically signed by: Abner Isidro MD (03/04/2019 12:08 AM) [id number]
--- NOTE | 2019-03-04 00:12 | RAD ---
EXAM: CHEST 1 VIEW History: Chest pain COMPARISON: 07/27/2010 TECHNIQUE: Single portable radiograph of the chest FINDINGS: The cardiac silhouette is unremarkable. The lungs are clear bilaterally. The costophrenic sulci are clear and well demarcated. IMPRESSION: No radiographic evidence of an acute cardiopulmonary process. Electronically signed by: Abner Isidro MD (03/04/2019 12:09 AM) [facility]
[2019-03-04 00:20] LABS: BASO % 0 % (0-3); EOS # 0.2 x10^3/uL (0.0-0.7); EOS % 3 % (0-3); HEMATOCRIT 38.4 % (36.0-47.0); HEMOGLOBIN 12.7 g/dL (12.0-15.5); LYMPH # 3.4 x10^3/uL (1.0-4.8); LYMPH % 47 % (24-48); MEAN CORPUSCULAR HEMOGLOBIN 31 pg (25-35); MEAN CORPUSCULAR HGB CONC 33 g/dL (31-37); MEAN CORPUSCULAR VOLUME 94 fL (79-100); MONO # 0.4 x10^3/uL (0.0-1.1); MONO % 6 % (0-9); NEUT # 3.2 x10^3uL (1.8-7.7); NEUT % 44 % (31-73); PLATELET COUNT 369 x10^3/uL (140-400); RED BLOOD COUNT 4.11 x10^6/uL (3.50-5.40); RED CELL DISTRIBUTION WIDTH 17.9 % (11.5-14.5); WHITE BLOOD COUNT 7.3 x10^3/uL (4.0-11.0)
[2019-03-04 00:28] LABS: BACTERIA,URINE 0 /HPF (0-FEW); BILIRUBIN,URINE NEG (NEG); CLARITY,URINE CLEAR; COLOR,URINE YELLOW; GLUCOSE,URINE NEG (NEG); NITRITE,URINE NEG (NEG); RBC,URINE OCC /HPF (0-2); SQUAMOUS EPITHELIAL CELL,UR FEW /LPF; UROBILINOGEN,URINE 0.2 mg/dL (0.2 mg/dL); WBC,URINE OCC /HPF (0-4)
[2019-03-04 00:31] LABS: PREG TEST PT QUAL NEGATIVE (NEG)
[2019-03-04 00:32] LABS: BARBITURATES NEG (NEG); BENZODIAZEPINES NEG (NEG); CANNABINOIDS NEG (NEG); COCAINE NEG (NEG); METHADONE NEG (NEG); OPIATES NEG (NEG); PHENCYCLIDINE NEG (NEG)
[2019-03-04 00:33] LABS: AMPHETAMINE/METHAMPHETAMINE NEG (NEG)
[2019-03-04 00:38] LABS: ALBUMIN 3.3 g/dL (3.4-5.0); ALBUMIN/GLOBULIN RATIO 0.8 (1.0-1.7); CALCIUM 8.7 mg/dL (8.5-10.1); CREATININE 0.7 mg/dL (0.6-1.0); GFR 115.2; POTASSIUM 3.4 mmol/L (3.5-5.1); TOTAL BILIRUBIN 0.1 mg/dL (0.2-1.0); TOTAL PROTEIN 7.4 g/dL (6.4-8.2)
[2019-03-04] MEDS ORDERED: MELO7.5T29 PO (00:48)
--- NOTE | 2019-03-04 17:40 | EKG ---
[address] [address] Test Date: 2019-03-03 Test Time: 23:26:45 Pat Name: KIRSTIN OHARA Department: Room: Gender: F Testing And Regulating Chief: : 1985 Requested By: LIMA PENN Order Number: [id number] Reading MD: Maxwell Cannon Measurements Intervals [place] Rate: 75 P: 0 WA: 116 QRS: 113 QRSD: 80 T: 70 QT: 406 QTc: 456 Interpretive Statements SINUS RHYTHM ABNORMAL RIGHT AXIS DEVIATION LOW LIMB LEAD VOLTAGE Electronically Signed On 03-31-2019 13:16:42 CDT by Maxwell Cannon
== END 2019-03-04 01:05 | disposition home or self-care (01) ==
LOC: ER 23:16
DX: R07.89 Other chest pain (principal); F41.9 Anxiety disorder, unspecified; F20.9 Schizophrenia, unspecified; F32.9 Major depressive disorder, single episode, unspecified; F17.210 Nicotine dependence, cigarettes, uncomplicated; Z88.5 Allergy status to narcotic agent
CPT/HCPCS: 36415; 71045; 72170; 80053; 80307; 81001; 81025; 83690; 83880; 84484; 84703; 85025; 85610; 93005; 99285-25

== ENCOUNTER 2020-07-20 13:27 | Emergency (ER) | payer MEDICAID, OTHER ==
[~2020-07-20] VITALS: Ht 149.9 cm; Wt 45.8 kg
[~2020-07-20 13:27] MED LIST changes: +MELO7.5T29 PO
[2020-07-20] MEDS ORDERED: ZIPRASIDONE IM 20 MG VIAL. IM ONE (14:00)
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
[2020-07-20 14:24] LABS: BASO % 0 % (0-3); EOS # 0.2 x10^3/uL (0.0-0.7); EOS % 3 % (0-3); HEMATOCRIT 42.4 % (36.0-47.0); HEMOGLOBIN 14.2 g/dL (12.0-15.5); LYMPH # 3.4 x10^3/uL (1.0-4.8); LYMPH % 53 % (24-48); MEAN CORPUSCULAR HEMOGLOBIN 32 pg (25-35); MEAN CORPUSCULAR HGB CONC 34 g/dL (31-37); MEAN CORPUSCULAR VOLUME 95 fL (79-100); MONO # 0.5 x10^3/uL (0.0-1.1); MONO % 8 % (0-9); NEUT # 2.3 x10^3uL (1.8-7.7); NEUT % 36 % (31-73); PLATELET COUNT 235 x10^3/uL (140-400); RED BLOOD COUNT 4.47 x10^6/uL (3.50-5.40); RED CELL DISTRIBUTION WIDTH 16.4 % (11.5-14.5); WHITE BLOOD COUNT 6.5 x10^3/uL (4.0-11.0)
[2020-07-20 14:31] LABS: CALCIUM 9.2 mg/dL (8.5-10.1); CREATININE 0.7 mg/dL (0.6-1.0); GFR 113.9; POTASSIUM 3.2 mmol/L (3.5-5.1)
[2020-07-20 14:36] LABS: ETHANOL < 10 mg/dL (0-10)
[2020-07-20 14:37] LABS: ALBUMIN 3.6 g/dL (3.4-5.0); ALBUMIN/GLOBULIN RATIO 0.8 (1.0-1.7); TOTAL BILIRUBIN 0.3 mg/dL (0.2-1.0); TOTAL PROTEIN 8.4 g/dL (6.4-8.2)
[2020-07-20 14:38] LABS: ACETAMIN < 2 mcg/mL (10-30)
[2020-07-20] MEDS ORDERED: ZIPRASIDONE 20 MG CAPSULE. PO ONE (14:45)
--- NOTE | 2020-07-20 14:56 | EKG ---
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
[2020-07-20] MEDS: POTASSIUM CHLORIDE 20 MEQ TABLET.ER. PO ONE (15:00)
[2020-07-20 15:10] LABS: BARBITURATES NEG (NEG); BENZODIAZEPINES POS (NEG); CANNABINOIDS POS (NEG); COCAINE NEG (NEG); METHADONE NEG (NEG); OPIATES NEG (NEG); PHENCYCLIDINE NEG (NEG)
[2020-07-20 15:11] LABS: AMPHETAMINE/METHAMPHETAMINE NEG (NEG)
[2020-07-20 15:30] LABS: BILIRUBIN,URINE NEG (NEG); CLARITY,URINE CLEAR; COLOR,URINE YELLOW; GLUCOSE,URINE NEG (NEG)
[2020-07-20 15:31] LABS: BACTERIA,URINE 0 /HPF (0-FEW); NITRITE,URINE NEG (NEG); SQUAMOUS EPITHELIAL CELL,UR FEW /LPF; UROBILINOGEN,URINE 0.2 mg/dL (0.2 mg/dL); WBC,URINE 0 /HPF (0-4)
[2020-07-21] MEDS ORDERED: ZIPRASIDONE IM 20 MG VIAL. IM ONE ×2 (02:00→06:30)
[2020-07-21] MEDS ORDERED: diphenhydrAMINE 50 MG/ML VIAL IM ONE (02:00)
[2020-07-21] MEDS ORDERED: LORazepam 1 MG TABLET PO ONE ×2 (06:00→17:45)
[2020-07-21] MEDS ORDERED: POTASSIUM CHLORIDE 20 MEQ TABLET.ER. PO ONE (06:03)
[2020-07-21] MEDS: POTASSIUM CHLORIDE 20 MEQ TABLET.ER. PO ONE (06:06)
[2020-07-21] MEDS ORDERED: NICOTINE 21MG PATCH. TD ONE ×2 (06:30→20:00)
[2020-07-21] MEDS: ZIPRASIDONE 20 MG CAPSULE. PO SCH ×2 (17:58→20:50)
[2020-07-21] MEDS ORDERED: clonazePAM 1 MG TABLET PO STA (18:23)
[2020-07-21] MEDS ORDERED: OLANZapine 2.5 MG TABLET PO ONE (19:00)
[2020-07-22] MEDS ORDERED: LORazepam 1 MG TABLET ONE (00:03)
[2020-07-22] MEDS ORDERED: LORazepam 1 MG TABLET PO ONE ×2 (00:30→13:00)
[2020-07-22] MEDS: ZIPRASIDONE 20 MG CAPSULE. PO SCH ×2 (06:17→21:00)
[2020-07-22] MEDS ORDERED: clonazePAM 1 MG TABLET PO STA (08:08)
[2020-07-22] MEDS ORDERED: ZIPRASIDONE IM 20 MG VIAL. IM ONE ×2 (17:14→17:30)
[2020-07-22] MEDS ORDERED: NICOTINE 21MG PATCH. TD ONE (23:45)
[2020-07-22] MEDS ORDERED: OLANZapine 2.5 MG TABLET PO ONE (23:45)
[2020-07-22] MEDS ORDERED: clonazePAM 1 MG TABLET PO ONE (23:45)
[2020-07-23] MEDS ORDERED: traZODone 50 MG TABLET. PO ONE (01:00)
[2020-07-23] MEDS: ZIPRASIDONE 20 MG CAPSULE. PO SCH (08:51)
[2020-07-23] MEDS ORDERED: ZIPRASIDONE 20 MG CAPSULE. PO SCH (09:00)
[2020-07-23] MEDS ORDERED: clonazePAM 1 MG TABLET PO PRN (09:00)
[2020-07-23] MEDS ORDERED: LORazepam 1 MG TABLET PO ONE (10:00)
[2020-07-23 10:30] VITALS: BP 114/76
== END 2020-07-23 11:04 | disposition short-term general hospital (02) ==
LOC: ER 13:27
DX: F22 Delusional disorders (principal); F13.20 Sedative, hypnotic or anxiolytic dependence, uncomplicated; F12.10 Cannabis abuse, uncomplicated; F41.9 Anxiety disorder, unspecified; F32.9 Major depressive disorder, single episode, unspecified; F20.9 Schizophrenia, unspecified; F17.210 Nicotine dependence, cigarettes, uncomplicated; F15.10 Other stimulant abuse, uncomplicated; F11.10 Opioid abuse, uncomplicated; Z03.818 Encounter for observation for suspected exposure to other biological agents ruled out; Z88.5 Allergy status to narcotic agent
CPT/HCPCS: 36415; 80053; 80307; 80329; 81001; 84443; 84702; 85025; 87426; 87491; 87591; 93005; 96372; 99285; G0480; J2060; U0003; J1200; J3486

== ENCOUNTER 2020-10-29 09:28 | Emergency (ER) | payer MEDICAID ==
[~2020-10-29] VITALS: Ht 149.9 cm; Wt 46.0 kg
--- NOTE | 2020-10-29 09:32 | PHYS DOC ---
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 States her bf, Jared, witnessed it. Reports she was conscious during her seizure and described as uncontrollable movements, her arms twisted behind her back. Denies any associated tongue laceration or oral bleeding, urinary or bowel incontinence. No prior history of seizures. States she is diagnosed with schizophrenia but does not believe she has it. Is a very poor historian and cannot recall her home medication. Denies any recent head or neck trauma or assault. Denies any suicidal ideations, homicidal ideations, no visual or auditory hallucinations. States she stopped marijuana a long time ago. Is not a daily drinker. Denies any IV drug use. Currently in ED complains of headache and points to the top of her head as a location of pain. Cannot recall her last menstrual period. Review of Systems: Review of Systems: Constitutional: Denies fever or chills Eyes: Denies change in visual acuity or eye discharge HENT: Denies nasal congestion or sore throat Respiratory: Denies cough or shortness of breath Cardiovascular: Denies chest pain or edema GI: Denies abdominal pain, nausea, vomiting, bloody stools or diarrhea : Denies dysuria or hematuria Musculoskeletal: Denies back pain or joint pain Integument: Denies rash or diaphoresis Neurologic: Denies neck stiffness, focal weakness or sensory changes Endocrine: Denies polyuria or polydipsia Lymphatic: Denies swollen glands Psychiatric: Denies depression or anxiety Allergies: Allergies: Allergies Coded Allergies Type Severity Reaction Last Updated Verified morphine Allergy Unknown 12/30/18 Yes Physical Exam: PE: Constitutional: Well developed, well nourished, no acute distress, non-toxic appearance, thin HENT: Normocephalic, atraumatic, no signs of trauma, no tongue lacerations or oral bleeding, mucous membranes dry Eyes: PERRLA, EOMI, conjunctiva normal, no discharge. Neck: Normal range of motion, supple, Cardiovascular: S1/2 present, regular rhythm Lungs & Thorax: Speaking in full sentences, bilateral equal chest rise, no tachypnea or increased work of breathing Abdomen: soft, no tenderness, Skin: Warm, dry, no erythema, no rash. [] Back: No midline spinal tenderness, no CVA tenderness. [] Extremities: No tenderness, no cyanosis, no edema Neurologic: Alert and oriented X 3, normal motor function, normal sensory function, no focal deficits noted. [] Psychologic: Affect normal, judgement normal/reasonable, mood normal-no psychosis, no paranoia, no disorganized thought processing Nexus C-spine criteria are negative: There is no post midline tenderness, the patient is not intoxicated, there is a normal level of alertness, there are no focal neurologic deficits and there are no distracting injuries. EKG: EKG: [] Radiology/Procedures: Radiology/Procedures: [] Heart Score: Risk Factors: Risk Factors: DM, Current or recent (<one month) smoker, HTN, HLP, family history of CAD, obesity. Risk Scores: Score 0 - 3: 2.5% MACE over next 6 weeks - Discharge Home Score 4 - 6: 20.3% MACE over next 6 weeks - Admit for Clinical Observation Score 7 - 10: 72.7% MACE over next 6 weeks - Early Invasive Strategies Course & Med Decision Making: Course & Med Decision Making Pertinent Labs and Imaging studies reviewed. (See chart for details) No witnessed seizure activity in ed. Pt with [facility], not a danger to herself/others. Urinalysis with no infection. Drug screen negative. Basic labs unremarkable. Will discharge home with strict ED return precautions were given for recurrent seizures/inability to return to her baseline mental status, repeat head injury, neck stiffness, headache with fever or any neurologic deficits. Encouraged urgent outpatient follow-up with PMD and neurology. Life- threatening processes were considered but are low suspicion at this time, given history, physical exam and ED workup. Pt was educated on all prescription medications and adverse effects. All patient's questions were answered and pt was stable at time of discharge. Life/limb-threatening differential includes but is not limited to, end organ damage/sepsis, trauma/abuse/neglect, neurologic deficit, alcohol/drug ingestion, toxidrome, suicidal/homicidal ideations plans or attempts, psychosis or mental illness resulting in self neglect and inability to care for self. I spoken with the patient and her caregivers. I explained the patient's condition, diagnoses and treatment plan based on the information available to me at this time. I have answered the patient and her caregiver's questions and addressed any concerns. The patient and her caregivers have a good understanding of patient's diagnosis, condition and treatment plan as can be expected at this point. Vital signs have been stable. Patient's condition is stable and appropriate for discharge from the emergency department. Patient will pursue further outpatient evaluation with primary care physician or other designated or consulting physician as outlined in the discharge instructions. The patient and/or caregivers are agreeable to this plan of care and follow-up instructions have been explained in detail. The patient and/or caregivers have received these instructions in written form and have expressed an understanding of the discharge instructions. The patient and/or caregivers are aware that any significant change of condition or worsening of symptoms should prompt immediate return to this or the closest emergency department or call to 348. Brendan Disclaimer: Brendan Disclaimer: This electronic medical record was generated, in whole or in part, using a voice recognition dictation system. Departure Departure: Impression: Primary Impression: Abnormal involuntary movements Additional Impression: Schizophrenia Disposition: 01 DC HOME SELF CARE/HOMELESS Condition: STABLE Referrals: PCP,NO (PCP) FOLLOW UP WITH FAMILY MEDICINE: [facility], [facility] [address] [address] OR [facility] [address] [place] [address], [facility] Instructions: Nonepileptic Seizures, Seizure, Adult Additional Instructions: FOLLOW UP WITH NEUROLOGY: Nicole Rodriguez MD [address] [place] [address], [address] [place] [address] OR [address] [place] [address] EMERGENCY DEPARTMENT GENERAL DISCHARGE INSTRUCTIONS Thank you for coming to [facility] (ED) today and trusting us with you care. We trust that you had a positivie experience in our Emergency Department. If you wish to speak to the department management, you may call the director at [phone]. YOUR FOLLOW UP INSTRUCTIONS ARE FOLLOWS: 1. Do you have a private Doctor? If you do not have a private doctor, please ask for a resource list of physicians or clinics that may be able to assist you with follow up care. 2. The Emergency Physician has interpreted your x-rays. The X-Ray specialist will also review them. If there is a change in the findings, you will be notified in 48 hours when at all possible. 3. A lab test or culture has been done, your results will be reviewed and you will be notified if you need a change in treatment. ADDITIONAL INSTRUCTIONS AND INFORMATION: 1. Your care today has been supervised by a physician who is specially trained in emergency care. Many problems require more than one evaluation for a complete diagnosis and treatment. We recommend that you schedule your follow up appointment as recommended to ensure complete treatment of you illness or injury. If you are unable to obtain follow up care and continue to have a problem, or if your condition worsens, we recommend that you return to the ED. 2. We are not able to safely determine your condition over the phone nor are we able to give sound medical advice over the phone. For these safety reasons, if you call for medical advice we will ask you to come to the ED for further evaluation. 3. If you have any questions regarding these discharge instructions please call the ED at [phone]. SAFETY INFORMATION: In the interest of safety, wellness, and injury prevention; we encourage you to wear your sealbelt, if you smoke; quite smoking, and we encourage family to use a protective helmet for bicycling and other sporting events that present an increased risk for head injury. IF YOUR SYMPTOMS WORSEN OR NEW SYMPTOMS DEVELOP, OR YOU HAVE CONCERNS ABOUT YOUR CONDITION; OR IF YOUR CONDITION WORSENS WHILE YOU ARE WAITING FOR YOUR FOLLOW UP APPOINTMENT; EITHER CONTACT YOUR PRIMARY CARE DOCTOR, THE PHYSICIAN WHOSE NAME AND NUMBER YOU WERE GIVEN, OR RETURN TO THE ED IMMEDIATELY. [facility] DO Oct 29, 2020 09:32
[2020-10-29] MEDS ORDERED: IBUPROFEN 400 MG TABLET. PO ONE ×2 (09:56→10:00)
[2020-10-29] MEDS ORDERED: diphenhydrAMINE HCL 25 MG CAPSULE PO ONE ×2 (09:56→10:00)
[2020-10-29] MEDS ORDERED: DEXAMETHASONE 4 MG TABLET ONE (09:56)
[2020-10-29] MEDS ORDERED: DEXAMETHASONE 4 MG TABLET PO ONE (10:00)
[2020-10-29 10:30] LABS: BASO # 0.1 x10^3/uL (0.0-0.2); BASO % 1 % (0-3); EOS # 0.1 x10^3/uL (0.0-0.7); EOS % 1 % (0-3); HEMATOCRIT 41.6 % (36.0-47.0); HEMOGLOBIN 13.8 g/dL (12.0-15.5); LYMPH # 3.4 x10^3/uL (1.0-4.8); LYMPH % 46 % (24-48); MEAN CORPUSCULAR HEMOGLOBIN 31 pg (25-35); MEAN CORPUSCULAR HGB CONC 33 g/dL (31-37); MEAN CORPUSCULAR VOLUME 92 fL (79-100); MONO # 0.4 x10^3/uL (0.0-1.1); MONO % 5 % (0-9); NEUT # 3.4 x10^3uL (1.8-7.7); NEUT % 47 % (31-73); PLATELET COUNT 298 x10^3/uL (140-400); RED BLOOD COUNT 4.51 x10^6/uL (3.50-5.40); RED CELL DISTRIBUTION WIDTH 15.9 % (11.5-14.5); WHITE BLOOD COUNT 7.3 x10^3/uL (4.0-11.0)
[2020-10-29 10:42] LABS: CALCIUM 8.8 mg/dL (8.5-10.1); CREATININE 0.8 mg/dL (0.6-1.0); GFR 97.7; POTASSIUM 3.4 mmol/L (3.5-5.1)
[2020-10-29 10:45] LABS: ALBUMIN 3.6 g/dL (3.4-5.0); ALBUMIN/GLOBULIN RATIO 0.8 (1.0-1.7); TOTAL BILIRUBIN 0.2 mg/dL (0.2-1.0); TOTAL PROTEIN 8.1 g/dL (6.4-8.2)
[2020-10-29 11:33] LABS: BARBITURATES NEG (NEG); BENZODIAZEPINES NEG (NEG); CANNABINOIDS NEG (NEG); COCAINE NEG (NEG); METHADONE NEG (NEG); OPIATES NEG (NEG); PHENCYCLIDINE NEG (NEG)
[2020-10-29 11:34] LABS: AMPHETAMINE/METHAMPHETAMINE NEG (NEG)
[2020-10-29 11:49] LABS: BILIRUBIN,URINE NEG (NEG); CLARITY,URINE HAZY; COLOR,URINE YELLOW; GLUCOSE,URINE NEG (NEG)
[2020-10-29 11:50] LABS: BACTERIA,URINE FEW /HPF (0-FEW); NITRITE,URINE NEG (NEG); RBC,URINE OCC /HPF (0-2); SQUAMOUS EPITHELIAL CELL,UR FEW /LPF; UROBILINOGEN,URINE 0.2 mg/dL (0.2 mg/dL)
[2020-10-29 11:51] VITALS: BP 132/77
[2020-10-29 11:51] LABS: U PREG PATIENT NEGATIVE (NEG)
== END 2020-10-29 12:00 | disposition home or self-care (01) ==
LOC: ER 09:28
DX: R25.9 Unspecified abnormal involuntary movements (principal); F20.9 Schizophrenia, unspecified; F41.9 Anxiety disorder, unspecified; F32.9 Major depressive disorder, single episode, unspecified; F17.210 Nicotine dependence, cigarettes, uncomplicated; Z88.5 Allergy status to narcotic agent
CPT/HCPCS: 36415; 80053; 80307; 81001; 81025; 82550; 85025; 99284; J8540; Q0163

== ENCOUNTER 2021-12-15 17:23 | Emergency (ER) | payer MEDICAID ==
[~2021-12-15] VITALS: Ht 149.9 cm; Wt 49.5 kg
[~2021-12-15 17:23] MED LIST changes: +POTA-121 PO; -POTA20TA4 PO
[2021-12-15 17:35] VITALS: BP 133/86
--- NOTE | 2021-12-15 17:35 | PHYS DOC ---
Past History Past Medical History: Depression Additional Past Medical Histor: Drug use (MELINA DONALD DO) Past Surgical History: No Surgical History (MELINA DONALD DO) Smoking: Cigarettes Alcohol Use: None Drug Use: Benzodiazepine, Marijuana, Methamphetamine, Opiates (MELINA DONALD DO) Adult General HPI HPI Patient is a 36-year-old female presenting via POV for cough. This is a chronic issue. States onset was approximately 2 months ago without any obvious illness, mechanism of injury, exposure, sick contact or travel. Nothing known makes b aly, ongoing tobacco abuse makes worse. Denies being in any pain, just admits at times it is harder to take deeper breaths and she has had some scant sputum production that is clear in nature which is unusual for her. Denies any medical diagnoses beyond her psychiatric history consistent of schizophrenia. She is fully vaccinated against COVID-19 (MELINA DONALD DO) Review of Systems Review of Systems Fourteen body systems of review of systems have been reviewed. See HPI for pertinent positives and negative responses, other hidalgo all other systems are negative, non-pertinent or non-contributory (MELINA DONALD DO) Allergies Allergies Allergies Coded Allergies Type Severity Reaction Last Updated Verified morphine Allergy Unknown 10/29/20 Yes (MELINA DONALD DO) Physical Exam Physical Exam Constitutional: Well developed, thin and appears malnourished, no acute distress, non-toxic appearance. HENT: Normocephalic, atraumatic, bilateral external ears normal, oropharynx moist, no oral exudates, nose normal. Eyes: PERRLA, EOMI, conjunctiva normal, no discharge. Neck: Normal range of motion, no tenderness, supple, no stridor. Cardiovascular: Heart rate regular, sinus rhythm, no murmurs rubs or gallops Lungs & Thorax: Bilateral breath sounds clear to auscultation, no increased work of breathing, no wheezing Abdomen: Bowel sounds normal, soft, no tenderness, no masses, no pulsatile masses. Nonsurgical abdomen, no peritoneal signs Skin: Warm, dry, no erythema, no rash. Back: No tenderness, no CVA tenderness. Extremities: No tenderness, no cyanosis, no clubbing, ROM intact, no edema. Neurologic: Alert and oriented X 3, grossly normal motor & sensory function, no focal deficits noted. Psychologic: Flat affect and mood (MELINA DONALD DO) Current Patient Data Vital Signs Vital Signs Date Time Temp Pulse Resp B/P (MAP) Pulse Ox O2 Delivery O2 Flow Rate FiO2 12/15/21 17:35 98.2 97 18 133/86 (102) 99 Room Air Vital Signs Date Time Temp Pulse Resp B/P (MAP) Pulse Ox O2 Delivery O2 Flow Rate FiO2 12/15/21 17:35 98.2 97 18 133/86 (102) 99 Room Air (MELINA DONALD DO) EKG EKG EKG ordered and interpreted by myself 1540 hrs. as sinus rhythm at 84 bpm, unremarkable intervals, no axis deviation, no acute ischemic findings, no STEMI (MELINA DONALD DO) Radiology/Procedures Radiology/Procedures EXAM: Chest, single view. HISTORY: Shortness of breath. COMPARISON: 03/03/2019 FINDINGS: A frontal view of the chest is obtained. There is no infiltrate, pleural effusion or pneumothorax. The heart is normal in size. There are healed left rib fractures. IMPRESSION: No acute pulmonary finding. Electronically signed by: Astrid Dotson MD (12/15/2021 5:41 PM) [facility] (MELINA DONALD DO) Heart Score C/O Chest Pain: No HEART Score for Chest Pain: HEART Score for Chest Pain Response (Comments) Value History Slighlty/Non-Suspicious 0 ECG Normal 0 Age < 45 0 Risk Factors No Risk Factors 0 Total 0 Risk Factors: Risk Factors: DM, Current or recent (<one month) smoker, HTN, HLP, family history of CAD, obesity. Risk Scores: Risk Factors: DM, Current or recent (<one month) smoker, HTN, HLP, family history of CAD, obesity. (MELINA DONALD DO) Course & Med Decision Making Course & Med Decision Making ABCs unremarkable HPI physical exam EKG and chest x-ray unremarkable. Reviewed PERC negative status. Discussed likely diagnosis of bronchitis, no indication for antibiotics at present. Discussed tobacco cessation. Recommended outpatient pulmonary function testing for potential COPD During decision made to administer short steroid burst with close primary care follow-up. Strict return precautions discussed at length prior to ER departure (MELINA DONALD DO) Course & Med Decision Making See Dr. Donald note for details, (RAÚL MIGUEL MD) Dragon Disclaimer Dragon Disclaimer This electronic medical record was generated, in whole or in part, using a voice recognition dictation system. (MELINA DONALD DO) PERC Rule for PE PERC Rule for PE Response (Comments) Value Age > 50: No 0 HR > 100: No 0 Sa02 on room air <95%: No 0 Unilateral leg swelling: No 0 Hemoptysis: No 0 Recent surgery or trauma: No 0 Prior PE or DVT: No 0 Hormone use: No 0 Total 0 Departure Departure: Impression: Primary Impression: Bronchitis Additional Impression: Tobacco abuse Disposition: HOME / SELF CARE / HOMELESS Condition: STABLE Referrals: PCP,NO (PCP) Additional Instructions: You were seen for bronchitis likely due to ongoing tobacco abuse. Please continue your current regimen for symptom control and if prescribed any medications during your ED visit today, take them as prescribed until completion or your primary doctor changes your medications. It will be important that you follow up with your primary doctor/manufacturing director after this ED visit. Tobacco cessation is advised. Return to the ED if you develop worsening cough, shortness of breath, fever > 101, chest pain, or any other new or concerning symptoms. Scripts Prednisone (PREDNISONE) 20 Mg Tablet 40 MG PO DAILY for bronchitis for 5 Days, #10 TAB Prov: MELINA DONALD DO 12/15/21 Dragleopoldo Disclaimer This chart was dictated in whole or in part using Voice Recognition software in a busy, high-work load, and often noisy Emergency Department environment. It may contain unintended and wholly unrecognized errors or omissions. (RAÚL MIGUEL MD) Dragon Disclaimer This chart was dictated in whole or in part using Voice Recognition software in a busy, high-work load, and often noisy Emergency Department environment. It may contain unintended and wholly unrecognized errors or omissions. (MELINA DONALD DO) Problem Qualifiers MELINA DONALD DO Dec 15, 2021 17:35 RAÚL MIGUEL MD Dec 15, 2021 18:05
[2021-12-15] MEDS ORDERED: PRED20TA PO (17:44)
--- NOTE | 2021-12-15 17:44 | RAD ---
EXAM: Chest, single view. HISTORY: Shortness of breath. COMPARISON: 03/03/2019 FINDINGS: A frontal view of the chest is obtained. There is no infiltrate, pleural effusion or pneumo thorax. The heart is normal in size. There are healed left rib fractures. IMPRESSION: No acute pulmonary finding. Electronically signed by: Astrid Dotson MD (12/15/2021 5:41 PM) [facility]
--- NOTE | 2021-12-15 17:44 | EKG ---
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
== END 2021-12-15 17:53 | disposition home or self-care (01) ==
LOC: ER 17:23
DX: J40 Bronchitis, not specified as acute or chronic (principal); F17.210 Nicotine dependence, cigarettes, uncomplicated; F32.9 Major depressive disorder, single episode, unspecified; Z88.5 Allergy status to narcotic agent
CPT/HCPCS: 71045; 93005; 99283

== ENCOUNTER 2021-12-25 18:06 | Emergency (ER) | payer MEDICAID ==
[~2021-12-25] VITALS: Ht 149.9 cm; Wt 48.8 kg
[~2021-12-25 18:06] MED LIST changes: +PRED20TA PO
--- NOTE | 2021-12-25 18:19 | PHYS DOC ---
Past History Past Medical History: Depression Additional Past Medical Histor: Drug use Past Surgical History: No Surgical History Smoking: Cigarettes Alcohol Use: None Drug Use: Benzodiazepine, Marijuana, Methamphetamine, Opiates Adult General Chief Complaint Chief Complaint: HEADACHE HPI HPI Patient is a 36-year-old female with COPD, who presents with headache has been going on a couple of days, whole head, 5 out of 10, dull and achy in nature. States she does get headaches occasionally. Denies any recent travel, traumas, illnesses, fevers, chest pain, shortness of breath, abdominal pain, nausea, vomiting, diarrhea. Denies any dysuria or hematuria. States she has not taken any medications for this headache. Review of Systems Review of Systems Review of systems otherwise unremarkable except noted in HPI Allergies Allergies Allergies Coded Allergies Type Severity Reaction Last Updated Verified morphine Allergy Intermediate 12/25/21 Yes Physical Exam Physical Exam Constitutional: Well developed, well nourished, no acute distress, non-toxic appearance. [] HENT: Normocephalic, atraumatic, bilateral external ears normal, oropharynx moist, no oral exudates, nose normal. [] Eyes: PERRLA, EOMI, conjunctiva normal, no discharge. [] Neck: Normal range of motion, no tenderness, supple, no stridor. [] Cardiovascular:Heart rate regular rhythm, no murmur [] Lungs & Thorax: No respiratory distress Skin: Warm, dry, no erythema, no rash. [] Extremities: No tenderness, no cyanosis, no clubbing, ROM intact, no edema. [] Neurologic: Alert and oriented X 3, normal motor function, normal sensory function, able to sit, stand and walk without issue no focal deficits noted. [] Psychologic: Affect normal, judgement normal, mood normal. [] EKG EKG [] Radiology/Procedures Radiology/Procedures [] Heart Score C/O Chest Pain: No Risk Factors: Risk Factors: DM, Current or recent (<one month) smoker, HTN, HLP, family history of CAD, obesity. Risk Scores: Risk Factors: DM, Current or recent (<one month) smoker, HTN, HLP, family history of CAD, obesity. Course & Med Decision Making Course & Med Decision Making Patient is a 36-year-old female who presents with a headache for couple days and has not taken any medications Vital signs nonconcerning. Physical exam noted above. Given medicines for symptoms. Discussed symptom management at home. On reassessment patient feeling better. Able to take p.o. and wanting to be discharged home. Advised to follow-up in the morning with primary care physician Gave return precautions to the ED. Patient grateful, verbalized understanding and agreed with plan of discharge. Dragon Disclaimer Dragon Disclaimer This electronic medical record was generated, in whole or in part, using a voice recognition dictation system. Departure Departure: Impression: Primary Impression: Headache Disposition: HOME / SELF CARE / HOMELESS Condition: STABLE Referrals: PCP,CECILIA (PCP) BEL GONZALES Patient Instructions: General Headache Without Cause Additional Instructions: Thank you for coming into the emergency department tonight and allowing us to take care of you. Please read the attached information carefully to go over things we discussed. You can begin a Tylenol, ibuprofen and Benadryl regimen as we discussed. You can take 1000 mg of Tylenol every 8 hours, 800 mg of ibuprofen every 8 hours and 50 mg of Benadryl every 6 hours. Please be sure to stay well-hydrated. Please follow-up with your primary care physician in the morning to set up a follow-up to discuss management of headaches at home. Please come back with new or concerning symptoms as we discussed. LAY VANEGAS MD Dec 25, 2021 18:19
[2021-12-25] MEDS ORDERED: ACETAMINOPHEN 500 MG TABLET PO ONE ×2 (18:42→18:45)
[2021-12-25] MEDS ORDERED: KETOROLAC 30 MG/ML VIAL. ONE (18:42)
[2021-12-25] MEDS ORDERED: PROCHLORPERAZINE 10 MG/2 ML VIAL. ONE (18:42)
[2021-12-25 18:44] VITALS: BP 130/82
[2021-12-25] MEDS ORDERED: KETOROLAC 60 MG/2 ML VIAL. IM ONE (18:45)
[2021-12-25] MEDS ORDERED: DEXAMETHASONE 4 MG TABLET PO ONE (18:45)
[2021-12-25] MEDS ORDERED: diphenhydrAMINE HCL 25 MG CAPSULE PO ONE (18:45)
[2021-12-25] MEDS ORDERED: PROCHLORPERAZINE 10 MG/2 ML VIAL. IM ONE (18:45)
[2021-12-25] MEDS ORDERED: MIDAZOLAM HCL PF 5 MG/5 ML VIAL. IM ONE (19:15)
[2021-12-25] MEDS ORDERED: ONDANSETRON ODT 4 MG TAB.RAPDIS PO ONE (19:15)
== END 2021-12-25 19:22 | disposition home or self-care (01) ==
LOC: ER 18:06
DX: R51.9 Headache, unspecified (principal); F32.9 Major depressive disorder, single episode, unspecified; F17.210 Nicotine dependence, cigarettes, uncomplicated; Z88.5 Allergy status to narcotic agent
CPT/HCPCS: 96372; 99284; J0780; J1885; J2250; J8540; Q0162; Q0163

== ENCOUNTER 2022-02-03 12:44 | Emergency (ER) | payer MEDICAID ==
[~2022-02-03] VITALS: Ht 149.9 cm; Wt 51.0 kg
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
[2022-02-03] MEDS ORDERED: CHLO15MO2 PO (13:43)
[2022-02-03 13:48] VITALS: BP 144/96
== END 2022-02-03 13:50 | disposition home or self-care (01) ==
LOC: ER 12:44
DX: K06.8 Other specified disorders of gingiva and edentulous alveolar ridge (principal); F31.9 Bipolar disorder, unspecified; F20.9 Schizophrenia, unspecified; F17.210 Nicotine dependence, cigarettes, uncomplicated; Z88.5 Allergy status to narcotic agent
CPT/HCPCS: 99282

== ENCOUNTER 2022-02-12 19:05 | Emergency (ER) | payer MEDICAID ==
[~2022-02-12] VITALS: Ht 149.9 cm; Wt 49.5 kg
[~2022-02-12 19:05] MED LIST changes: +CHLO15MO2 PO
--- NOTE | 2022-02-12 19:20 | PHYS DOC ---
Past History Past Medical History: Bipolar, Depression, Schizophrenia Additional Past Medical Histor: Drug use Past Surgical History: , Tubal ligation, Other Additional Past Surgical Histo: tubal preg, teeth pulled Smoking: Cigarettes, Greater than 1 pack/day Alcohol Use: None Drug Use: Benzodiazepine, Marijuana, Methamphetamine, Opiates Adult General HPI HPI Patient is a 36-year-old female with no endorsed medical problems who presents with a chief complaint of some increased mucus and cough over the last week with occasional sharp chest pain, intermittently as well. States she is a [id number] smoker and still smokes. Denies any other recent traumas, travels, illnesses, fevers, abdominal pain, nausea, vomiting, dysuria. Denies any numbness/weakness/tingling. Denies any dyspnea on exertion, orthopnea, PND or edema Review of Systems Review of Systems Review of systems otherwise unremarkable except noted in HPI Allergies Allergies Allergies Coded Allergies Type Severity Reaction Last Updated Verified morphine Allergy Intermediate 12/25/21 Yes Physical Exam Physical Exam Constitutional: Well developed, well nourished, no acute distress, non-toxic appearance. [] HENT: Normocephalic, atraumatic, bilateral external ears normal, oropharynx moist, no oral exudates, nose normal. [] Eyes: , conjunctiva normal, no discharge. [] Neck: Normal range of motion, no tenderness, supple, no stridor. [] Cardiovascular:Heart rate regular rhythm, no murmur [] Lungs & Thorax: Mild bilateral upper respiratory congestion and very mild wheeze Abdomen: soft, no tenderness, no masses, no pulsatile masses. [] Skin: Warm, dry, no erythema, no rash. [] Back: No tenderness, no CVA tenderness. [] Extremities: No tenderness, no cyanosis, no clubbing, ROM intact, no edema. [] Neurologic: Alert and oriented X 3, normal motor function, normal sensory function, able to sit, stand and walk without issue no focal deficits noted. [] Psychologic: Affect normal, judgement normal, mood normal. [] EKG EKG [] Radiology/Procedures Radiology/Procedures [] Heart Score C/O Chest Pain: Yes HEART Score for Chest Pain: HEART Score for Chest Pain Response (Comments) Value History Slighlty/Non-Suspicious 0 ECG Normal 0 Age < 45 0 Risk Factors 1 or 2 Risk Factors 1 Troponin < Normal Limit 0 Total 1 Risk Factors: Risk Factors: DM, Current or recent (<one month) smoker, HTN, HLP, family history of CAD, obesity. Risk Scores: Risk Factors: DM, Current or recent (<one month) smoker, HTN, HLP, family history of CAD, obesity. Course & Med Decision Making Course & Med Decision Making Patient is a 36-year-old female who presents with cough, increased mucus and pleuritic chest pain for the last week to 10 days Vital signs nonconcerning. Physical exam noted above. EKG with a normal rate, normal rhythm, no STEMI. Troponin normal. Chest x-ray not concerning. Discussed all findings with patient. Discussed cessation of smoking. Discussed COPD and given education. Advised to follow-up in the morning with primary care physician Gave return precautions to the ED. Patient grateful, verbalized understanding agree with plan of discharge [] Dragon Disclaimer Dragon Disclaimer This electronic medical record was generated, in whole or in part, using a voice recognition dictation system. Departure Departure: Impression: Primary Impression: COPD (chronic obstructive pulmonary disease) Additional Impression: Cough Disposition: 01 HOME / SELF CARE / HOMELESS Condition: STABLE Referrals: PCPCECILIA (PCP) BEL GONZALES Patient Instructions: Chronic Obstructive Pulmonary Disease, Chronic Obstructive Pulmonary Disease Exacerbation, Pneumonia, Adult Additional Instructions: Thank you for coming into the emergency department tonight and allowing us to take care of you. Please read the attached information carefully to go over things we discussed. Please cease smoking cigarettes for all reasons that we discussed and stay away from respiratory irritants as well as we discussed. Please follow-up as soon as you can with your primary care physician update on your ED visit and set up a follow-up visit as soon as you can to discuss tobacco smoking, cessation of tobacco smoking and COPD. Please come back with new or concerning symptoms as we discussed. Scripts Doxycycline Hyclate (DOXYCYCLINE HYCLATE) 100 Mg Capsule 1 CAP PO BID for PNA, #14 CAP Prov: LAY VANEGAS MD 02/12/22 Problem Qualifiers LAY VANEGAS MD Feb 12, 2022 19:20
--- NOTE | 2022-02-12 19:58 | RAD ---
XR CHEST 1V History: Reason: COPD / Spl. Instructions: / History: Comparison: December 15, 2021 Findings: Patchy ill-defined left mid lung opacity. No pleural effusion. No pneumothorax. Normal heart size. Hy perinflation. Impression: 1. Patchy ill-defined left mid lung opacity, may represent pneumonia. Recommend follow-up to ensure resolution. Electronically signed by: Tucker Davis DO (02/12/2022 7:56 PM) [facility]
[2022-02-12] MEDS ORDERED: BENZ1TAB5 PO (20:02)
[2022-02-12] MEDS ORDERED: OLAN10TA69 PO (20:02)
[2022-02-12] MEDS ORDERED: TRAZ-125 PO (20:02)
[2022-02-12] MEDS: DEXAMETHASONE 4 MG TABLET PO ONE (20:07)
[2022-02-12] MEDS: IPRATRPIUM/ALBUTEROL 0.5/2.5MG 3 ML NEBU. NEB ONE (20:11)
[2022-02-12] MEDS: ALBUTEROL SULFATE 8GM INHALER. INH ONE (20:18)
[2022-02-12 20:20] VITALS: BP 130/84
[2022-02-12] MEDS: DOXYCYCLINE HYCLATE 100 MG TABLET PO ONE (20:25)
[2022-02-12] MEDS ORDERED: DOXY100C3 PO (21:01)
== END 2022-02-12 20:25 | disposition home or self-care (01) ==
LOC: ER 19:05
DX: J44.9 Chronic obstructive pulmonary disease, unspecified (principal); F31.9 Bipolar disorder, unspecified; F20.9 Schizophrenia, unspecified; F17.210 Nicotine dependence, cigarettes, uncomplicated; Z88.5 Allergy status to narcotic agent
CPT/HCPCS: 36415; 71045; 84484; 93005; 94640; 99285; J8540; 94664